=== PATIENT | female | born 1960 | race African-American/Black ===

== ENCOUNTER 2017-03-15 04:41 | Emergency (ER) | payer SELFPAY ==
--- NOTE | 2017-03-15 04:50 | PDOC ---
History of Present Illness - General History Source: Patient Exam Limitations: No Limitations - History of Present Illness Initial Comments: 03/15/17 05:01 The patient is a 57 year old female with a history of cancer who presents to the emergency department with headache, nausea, and vomiting for one day. The patient states on monday she went for radiation therapy at [facility]. Yesterday the patient began to feel nauseous and lethargic and was unable to keep any food down The patient notes that she began to develop a pounding headache, global in nature. She denies any other complaints at this time <Golden Natarajan - Last Filed: 03/15/17 05:01> <Mia Wasserman - Last Filed: 03/15/17 08:47> - General History Source: Patient <Crow Rivero - Last Filed: 03/15/17 20:01> - General Stated Complaint: HEADACHE Time Seen by Provider: 03/15/17 04:47 NIH Stroke Scale - Last Known Well Date/Time & Onset Date Last Known Well: 03/14/17 Time Last Known Well: 07:09 - Initial Evaluation Level of consciousness: Alert Ask patient the month and their age: Answers both correctly Ask patient to open & close eyes; make fist and let go: Obeys both correctly Best gaze (horizontal eye movement): Normal Visual field testing: No visual field loss Facial paresis (Show teeth/raise eyebrows/close eyes tight): Normal symmetrical movement Motor Function: Left Arm: Normal Motor Function: Right Arm: Normal (extends arm 90 (or 45) degrees for 10 seconds without drift Motor Function: Left Leg: Normal (extends leg 30 degrees for 5 seconds without drift) Motor Function: Right Leg: Normal (extends leg 30 degrees for 5 seconds without drift) Limb Ataxia: No ataxia Sensory(Use pinprick test arms,legs,trunk,face/side to side): Normal Best language (Describe picture, name items, read sentences): No Aphasia Dysarthria (read several words): Normal articulation Extinction and Inattention: No abnormality - Total Score NIH Stroke Scale Score: 0 <Crow Rivero - Last Filed: 03/15/17 20:01> tPA Exclusion Checklist 0-3hr - Time Elapsed Date last known well: 03/14/17 Time last known well: 07:10 Elaspsed time: 1 Day(s) and 12 Hour(s) and 50 Minutes - Thrombolytic Therapy Candidate Is the patient eligible for Thrombolytic Therapy?: No - Exclusion Criteria 0-3hr SBP greater than 185 or DBP greater than 110mmHg despite tx: No Hx of previous IC hemorrhage, IC neoplasm, AVM or aneurysm: Yes Active internal bleeding: No Blding diathesis(low plt ct, inc PTT,INR>1.7 or use of NOAC): No Symptoms suggest subarachnoid hemorrhage: No CT demonstrates multilobar infarct(>1/3 cerebral hemiphere): No Arterial puncture at noncompressible site in previous 7 days: No Blood glucose concentration less than 50mg/dL (2.7mmol/L): No - Relative Exclusion Criteria 0-3h Life expectancy <1yr/severe co-morbid illness/DEVELOPMENT SPEC on admit: No : No Patient/family refused: No Rapid improvement: No Stroke severity too mild: No Recent acute SD (w/in previous 3 months): No Seizure at onset with postictal residual neuro impairments: No Major surgery or serious trauma w/in previous 14 days: No Recent GI or hemorrhage (w/in previous 21 days): No - Ineligibility reason(s) Reasons No tPA given: Outside of window - delayed arrival (pt has intraparemchyal bleeding) <Crow Rivero - Last Filed: 03/15/17 20:01> Past History <Golden Natarajan - Last Filed: 03/15/17 05:01> <Mia Wasserman - Last Filed: 03/15/17 08:47> <Crow Rivero - Last Filed: 03/15/17 20:01> - Past Medical History Allergies/Adverse Reactions: Allergies Allergy/AdvReac Type Severity Reaction Status Date / Time No Known Allergies Allergy Verified 03/15/17 05:38 Review of Systems - Review of Systems Able to Perform ROS?: Yes Comments:: 03/15/17 05:01 CONSTITUTIONAL: Absent: fever, no chills, no fatigue EYES: Absent: visual changes ENT: Absent: ear pain, no sore throat CARDIOVASCULAR: Absent: chest pain, no palpitations RESPIRATORY: Absent: cough, no SOB GI: (+) Nausea, vomiting Absent: abdominal pain, no constipation, no diarrhea GENITOURINARY: Absent: dysuria, no frequency, no hematuria MUSCULOSKELETAL: Absent: back pain, no arthralgia, no myalgia SKIN: Absent: rash NEURO: (+) Headache <Golden Natarajan - Last Filed: 03/15/17 05:01> *Physical Exam - Vital Signs Last Vital Signs Temp Pulse Resp BP Pulse Ox 98.3 F 73 18 114/80 100 03/15/17 04:56 03/15/17 04:56 03/15/17 04:56 03/15/17 04:56 03/15/17 04:56 - Physical Exam Comments: 03/15/17 05:01 GENERAL: (+) Well-appearing, well-nourished. Mild distress. HEENT: Normocephalic, atraumatic. PERRL, EOM intact. CARDIOVASCULAR: Normal S1, S2. Regular rate and rhythm. PULMONARY: Clear to auscultation bilaterally. ABDOMEN: Soft, non-distended, non-tender. EXTREMITIES: Normal ROM in all four extremities. No gross deformities. SKIN: Warm, dry. No rash NEUROLOGICAL: No focal neurological deficits. <Golden Natarajan - Last Filed: 03/15/17 05:01> - Vital Signs Last Vital Signs Temp Pulse Resp BP Pulse Ox 98.3 F 86 18 110/69 98 03/15/17 07:00 03/15/17 07:00 03/15/17 07:00 03/15/17 07:00 03/15/17 07:00 <Mia Wasserman - Last Filed: 03/15/17 08:47> ED Treatment Course - LABORATORY CBC & Chemistry Diagram: 03/15/17 05:37 03/15/17 05:37 - ADDITIONAL ORDERS Additional order review: Laboratory Results 03/15/17 03/15/17 03/15/17 07:35 05:37 05:37 PT with INR 11.80 INR 1.04 Sodium 142 Potassium 3.7 Chloride 106 Carbon Dioxide 29 Anion Gap 7 L BUN 16 Creatinine 0.8 Creat Clearance w eGFR > 60 Random Glucose 116 H Calcium 8.3 L Magnesium 1.7 L Total Bilirubin 0.2 AST 8 L ALT 19 Alkaline Phosphatase 72 Total Protein 6.2 L Albumin 3.0 L Lipase 404 H Urine Color Ltyellow Urine Appearance Slcloudy Urine pH 7.0 Ur Specific [place] 1.014 Urine Protein Negative Urine Glucose (UA) Negative Urine Ketones Negative Urine Blood Negative Urine Nitrite Negative Urine Bilirubin Negative Urine Urobilinogen Negative Blood Type Antibody Screen 03/15/17 05:37 PT with INR INR Sodium Potassium Chloride Carbon Dioxide Anion Gap BUN Creatinine Creat Clearance w eGFR Random Glucose Calcium Magnesium Total Bilirubin AST ALT Alkaline Phosphatase Total Protein Albumin Lipase Urine Color Urine Appearance Urine pH Ur Specific [place] Urine Protein Urine Glucose (UA) Urine Ketones Urine Blood Urine Nitrite Urine Bilirubin Urine Urobilinogen Blood Type B POSITIVE Antibody Screen Negative 03/15/17 05:37 RBC 4.18 MCV 88.6 MCHC 32.8 RDW 16.0 H MPV 7.2 L Neutrophils % 75.4 Lymphocytes % 16.4 Monocytes % 7.1 Eosinophils % 0.6 Basophils % 0.5 - Medications Given in the ED: ED Medications Discontinued Medications Generic Name Dose Route Start Last Admin Trade Name Freq PRN Reason Stop Dose Admin Hydromorphone HCl 1 mg 03/15/17 05:36 03/15/17 05:49 Dilaudid Injection - IVPUSH 03/15/17 05:37 1 mg ONCE ONE Administration Morphine Sulfate 6 mg 03/15/17 04:51 03/15/17 05:13 Morphine Sulfate IVPUSH 03/15/17 04:52 6 mg ONCE ONE Administration Ondansetron HCl 4 mg 03/15/17 04:51 03/15/17 05:13 Zofran Injection IVPUSH 03/15/17 04:52 4 mg ONCE STA Administration Ondansetron HCl 4 mg 03/15/17 05:35 03/15/17 05:49 Zofran Injection IVPUSH 03/15/17 05:36 4 mg ONCE STA Administration <Mia Wasserman - Last Filed: 03/15/17 08:47> - LABORATORY CBC & Chemistry Diagram: 03/15/17 05:37 03/15/17 05:37 <Crow Rivero - Last Filed: 03/15/17 20:01> Medical Decision Making - Medical Decision Making 03/15/17 08:47 Stat team at bedside to transport to [facility]. <Mia Wasserman - Last Filed: 03/15/17 08:47> - Medical Decision Making 03/15/17 06:39 Pt feels better at this time. Awaiting Ct scan results of brain. Pending disposition. <Crow Rivero - Last Filed: 03/15/17 20:01> *DC/Admit/Observation/Transfer - Attestations Scribe Attestion: 03/15/17 05:01 Documentation prepared by Golden Natarajan, acting as medical information specialist for Crow Rivero DO. <Golden Natarajan - Last Filed: 03/15/17 05:01> - Discharge Dispostion Admit: No - Transfer to Acute Care Facility Receiving Facility: [facility]. Accepting Physician:: Warren Transfer comment: Accepted to [facility] by Dr. Kelley. <Mia Wasserman - Last Filed: 03/15/17 08:47> - Discharge Dispostion Admit: No - Transfer to Acute Care Facility Receiving Facility: [facility]. (transferred for Nerosurgical evaluation and care) <Crow Rivero - Last Filed: 03/15/17 20:01> Diagnosis at time of Disposition: Intraparenchymal hematoma of brain Qualifiers: Encounter type: initial encounter Laterality: left Loss of consciousness presence/duration: without LOC Qualified Code(s): S06.350A - Traumatic hemorrhage of left cerebrum without loss of consciousness, initial encounter - Discharge Dispostion Disposition: TRANSFER ACUTE CARE/OTHER HOSP Condition at time of disposition: Good
[2017-03-15] MEDS ORDERED: morphine SULFATE 4 MG/ML VIAL IVPUSH ONE (04:51)
[2017-03-15] MEDS ORDERED: ONDANSETRON 4 MG/2 ML VIAL IVPUSH STA ×3 (04:51→07:44)
[2017-03-15 04:58] VITALS: TEMP 98.3; BMI 29.9
[2017-03-15] MEDS ORDERED: SODIUM CHLORIDE 1,000 ML IV SCH (05:00)
[2017-03-15] MEDS ORDERED: morphine SULFATE 4 MG/ML VIAL ONE ×2 (05:00→08:07)
[2017-03-15] MEDS ORDERED: ONDANSETRON 4 MG/2 ML VIAL ONE ×2 (05:08→08:08)
[2017-03-15] MEDS ORDERED: HYDROmorphone HCL CARPU-JECT 1 MG/1 ML DISP.SYRIN IVPUSH ONE (05:36)
[2017-03-15] MEDS ORDERED: HYDROmorphone HCL CARPU-JECT 1 MG/1 ML DISP.SYRIN ONE (05:43)
[2017-03-15 05:44] LABS: BASOPHIL 0.5 % (0-2.0); EOSINOPHIL 0.6 % (0-4.5); MCH 29.1 pg (25.7-33.7); MCHC 32.8 g/dl (32.0-36.0); MEAN CELL VOLUME 88.6 fl (80-96); MEAN PLT VOLUME 7.2 fl (7.5-11.1); NEUTROPHILS 75.4 % (42.8-82.8); PLATELET COUNT 271 K/MM3 (134-434); WHITE BLOOD COUNT 11.9 K/mm3 (4.0-10.0)
[2017-03-15 05:57] LABS: INR 1.04 (0.82-1.09); PROTHROMBIN TIME (PATIENT) 11.8 SEC (9.98-11.88)
[2017-03-15 06:08] LABS: ANION GAP 7 (8-16); BILIRUBIN,TOTAL 0.2 mg/dL (0.2-1.0); CALCIUM 8.3 mg/dL (8.5-10.1); CO2 29 mmol/L (21-32); CREATININE 0.8 mg/dL (0.55-1.02); GLUCOSE,RANDOM 116 mg/dL (74-106); MAGNESIUM 1.7 mg/dL (1.8-2.4); SGOT/AST 8 U/L (15-37); SGPT/ALT 19 U/L (12-78); TOT PROT 6.2 g/dl (6.4-8.2)
[2017-03-15 06:09] LABS: ALK PHOS 72 U/L (45-117)
[2017-03-15 07:43] LABS: URINE APPEARANCE SLCLOUDY; URINE BILIRUBIN NEGATIVE (NEGATIVE); URINE BLOOD NEGATIVE (NEGATIVE); URINE COLOR LTYELLOW; URINE GLUCOSE (UA) NEGATIVE (NEGATIVE); URINE KETONE NEGATIVE (NEGATIVE); URINE NITRITE NEGATIVE (NEGATIVE); URINE PROTEIN NEGATIVE (NEGATIVE); URINE UROBILINOGEN NEGATIVE mg/dL (0.2-1.0)
[2017-03-15] MEDS ORDERED: morphine CARPU-JECT 2 MG/1 ML DISP.SYRIN IVPUSH ONE (07:44)
[2017-03-15 08:43] VITALS: BP 102/73; PULSE 85
[2017-03-15 11:45] LABS: URINE LEUK ESTERASE Negative (NEGATIVE)
--- NOTE | 2017-03-15 12:10 | EKG ---
Test Reason : Blood Pressure : / mmHG Vent. Rate : 087 BPM Atrial Rate : 087 BPM P-R Int : 172 ms QRS Dur : 074 ms QT Int : 398 ms P-R-T Axes : 062 051 058 degrees QTc Int : 478 ms NORMAL SINUS RHYTHM NORMAL ECG NO PREVIOUS ECGS AVAILABLE Confirmed by ARNOLD CHRISTIANSON MD ([id number]) on 03/15/2017 12:10:21 PM Referred By: Confirmed By:ARNOLD CHRISTIANSON MD
== END 2017-03-15 08:50 | disposition short-term general hospital (02) ==
LOC: JER 04:41
PROC: 3E033GC Introduction of Other Therapeutic Substance into Peripheral Vein, Percutaneous Approach (ICD-10-PCS; principal; 2017-03-15)
PROC: 3E033NZ Introduction of Analgesics, Hypnotics, Sedatives into Peripheral Vein, Percutaneous Approach (ICD-10-PCS; 2017-03-15)
PROC: 3E033GC Introduction of Other Therapeutic Substance into Peripheral Vein, Percutaneous Approach (ICD-10-PCS; 2017-03-15)
DX: I61.8 Other nontraumatic intracerebral hemorrhage (principal); D09.9 Carcinoma in situ, unspecified
CPT/HCPCS: 36415; 70450-TC; 80053; 81003; 83690; 83735; 85025; 85610; 86850; 86900; 86901; 93005; 93010; 99282-25

== ENCOUNTER 2018-10-26 17:21 | Inpatient (IN) | payer OTHER, BC ==
[2018-10-26] MEDS ORDERED: ACETAMINOPHEN 1000 MG/100 ML VIAL (NON FORMULARY) IVPB ONE (18:23)
[2018-10-26] MEDS ORDERED: ONDANSETRON 4 MG/2 ML VIAL IVPUSH ONE (18:23)
[2018-10-26] MEDS ORDERED: SODIUM CHLORIDE 1,000 ML IV STA (18:23)
[2018-10-26] MEDS ORDERED: ACETAMINOPHEN INJECTION 100 ML IVPB ONE ×2 (18:26→18:33)
[2018-10-26] MEDS ORDERED: ONDANSETRON 4 MG/2 ML VIAL ONE (18:27)
[2018-10-26] MEDS ORDERED: morphine CARPU-JECT 4 MG/1 ML DISP.SYRIN IVPUSH ONE ×3 (18:44→22:56)
[2018-10-26] MEDS ORDERED: morphine SULFATE 4 MG/ML VIAL ONE ×3 (18:56→23:10)
[2018-10-26 19:06] LABS: BASO % 0.2 % (0-2.0); EOS % 0.8 % (0-4.5); HEMATOCRIT 43.3 % (32.4-45.2); HEMOGLOBIN 14.3 GM/dL (10.7-15.3); LYMPH % 9.9 % (8-40); MCH 28.4 pg (25.7-33.7); MEAN PLT VOLUME 7.7 fl (7.5-11.1); MONO % 3.9 % (3.8-10.2); NEUT % 85.2 % (42.8-82.8); PLATELET COUNT 304 K/MM3 (134-434); RBC 5.03 M/mm3 (3.60-5.2); RDW 14.6 % (11.6-15.6); WHITE BLOOD COUNT 12.3 K/mm3 (4.0-10.0)
[2018-10-26 20:02] LABS: PH,URINE 5.5 (5.0-8.0); URINE APPEARANCE CLEAR; URINE BILIRUBIN NEGATIVE (NEGATIVE); URINE COLOR YELLOW; URINE GLUCOSE (UA) NEGATIVE (NEGATIVE); URINE KETONE 2+ (NEGATIVE); URINE LEUK ESTERASE NEGATIVE (NEGATIVE); URINE NITRITE NEGATIVE (NEGATIVE); URINE PROTEIN TRACE (NEGATIVE)
[2018-10-26 20:19] LABS: ALBUMIN 3.8 g/dl (3.4-5.0); BILIRUBIN,TOTAL 0.3 mg/dL (0.2-1); BLOOD UREA NITROGEN 13.7 mg/dL (7-18); CALCIUM 9.3 mg/dL (8.5-10.1); CREATININE 0.8 mg/dL (0.55-1.3); POTASSIUM 3.9 mmol/L (3.5-5.1); TOT PROT 7.6 g/dl (6.4-8.2)
--- NOTE | 2018-10-26 21:27 | PDOC ---
Documentation entered by Rosy Fierro SCRIBE, acting as scribe for Amol Gonzalez MD. Amol Gonzalez MD: This documentation has been prepared by the Vadim enriquez Sammi, SCRIBE, under my direction and personally reviewed by me in its entirety. I confirm that the documentation accurately reflects all work, treatment, procedures, and medical decision making performed by me. History of Present Illness - General Chief Complaint: Pain Stated Complaint: STOMACH PAIN Time Seen by Provider: 10/26/18 19:14 History Source: Patient Exam Limitations: No Limitations - History of Present Illness Initial Comments: 10/26/18 19:52 The patient is a 58 year old female, with a significant PMH of lung cancer, brain cancer, asthma, COPD, who presents to the emergency department for evaluation of 1 day of diffuse abdominal pain. The patient reports at around 2pm this afternoon her stomach began to hurt with associated 3 large bowel movements and 1 episode of vomit. The patient states she ate a new smoothie today and a new granola bar before the symptoms began. The patient denies chest pain, shortness of breath, headache and dizziness. Denies dysuria, frequency, urgency and hematuria. Allergies: NDA Surgical history: appendectomy, brain surgery for cancer Past History - Past Medical History Allergies/Adverse Reactions: Allergies Allergy/AdvReac Type Severity Reaction Status Date / Time No Known Allergies Allergy Verified 03/15/17 05:38 COPD: No - Immunization History Immunization Up to Date: Yes - Suicide/Smoking/Psychosocial Hx Smoking History: Never smoked Have you smoked in the past 12 months: No Hx Alcohol Use: No Drug/Substance Use Hx: No Review of Systems - Review of Systems Comments:: 10/26/18 19:52 GENERAL/CONSTITUTIONAL: No fever or chills. No weakness. HEAD, EYES, EARS, NOSE AND THROAT: No change in vision. No ear pain or discharge. No sore throat. CARDIOVASCULAR: No chest pain or shortness of breath. RESPIRATORY: No cough, wheezing, or hemoptysis. GASTROINTESTINAL: (+)diffuse abdominal pain. (+)nausea (+)vomiting GENITOURINARY: No dysuria, frequency, or change in urination. MUSCULOSKELETAL: No joint or muscle swelling or pain. No neck or back pain. SKIN: No rash NEUROLOGIC: No headache, vertigo, loss of consciousness, or change in strength/ sensation. *Physical Exam - Vital Signs Last Vital Signs Temp Pulse Resp BP Pulse Ox 98.1 F 90 20 117/84 10/26/18 17:48 10/26/18 17:48 10/26/18 17:48 10/26/18 17:48 - Physical Exam Comments: 10/26/18 19:52 GENERAL: Uncomfortable appearing. HEAD: No signs of trauma ENT: Hearing grossly normal. NECK: Normal ROM. Supple. LUNGS: Breath sounds equal, clear to auscultation bilaterally. No wheezes, and no crackles HEART: Regular rate and rhythm, normal S1 and S2, no murmurs, rubs or gallops ABDOMEN: (+)Diffuse abdominal tenderness to palpation. Soft, No guarding, no rebound. EXTREMITIES: Normal range of motion, no edema. No clubbing or cyanosis. No cords, erythema, or tenderness NEUROLOGICAL: Cranial nerves II through XII grossly intact. Normal speech. SKIN: Warm, Dry. No rashes or lesions noted. ED Treatment Course - LABORATORY CBC & Chemistry Diagram: 10/26/18 18:40 10/26/18 18:40 - ADDITIONAL ORDERS Additional order review: 10/26/18 18:40 RBC 5.03 MCV 86.0 MCHC 33.0 RDW 14.6 MPV 7.7 Neutrophils % 85.2 H Lymphocytes % 9.9 D Monocytes % 3.9 Eosinophils % 0.8 Basophils % 0.2 - RADIOLOGY Radiology Studies Ordered: Category Date Time Status ABDOMEN & PELVIS CT WITH CONTR [CT] Stat CT Scan 10/26/18 19:31 Ordered - Medications Given in the ED: ED Medications Discontinued Medications Generic Name Dose Route Start Last Admin Trade Name Raza PRN Reason Stop Dose Admin Acetaminophen 1,000 mg 10/26/18 18:23 10/26/18 18:47 Ofirmev Injection - IVPB 10/26/18 18:24 1,000 mg ONCE ONE Administration Morphine Sulfate 4 mg 10/26/18 18:44 10/26/18 19:07 Morphine Injection - IVPUSH 10/26/18 18:45 4 mg ONCE ONE Administration Ondansetron HCl 4 mg 10/26/18 18:23 10/26/18 18:48 Zofran Injection IVPUSH 10/26/18 18:24 4 mg ONCE ONE Administration Medical Decision Making - Medical Decision Making 10/26/18 19:41 A portion of this note was documented by scribe services under my direction. I have reviewed the details of the note, within reason, and agree with the documentation with the following case summary and management plan written by me. Patient treated in the ED. Nursing notes are reviewed and incorporated into the medical decision-making. Vital signs reviewed. Peripheral IV access obtained by the nurse, laboratory studies are drawn and sent, reviewed and interpreted by myself. Vital Signs Temp Pulse Resp BP Pulse Ox 98.1 F 90 20 117/84 10/26/18 17:48 10/26/18 17:48 10/26/18 17:48 10/26/18 17:48 58-year-old with past medical history of brain and lung cancer currently in remission, with lung nodules with next scheduled CT scan the chest in December 2018, asthma and COPD presents with diffuse abdominal pain. The patient reported that she ate nothing unusual yesterday. Woke up this morning in her usual state health. She ate a new smoothie with new ingredients including fruit this morning and subsequently developed diffuse abdominal pain. She reported that she was straining to move her bowels and had vomited once. Patient is a history of an appendectomy. Denies any fevers or chills. Though food poisoning and gastroenteritis is within the differential. Patient does have prior cancer history and surgical history. We'll need to rule out bowel obstruction, diverticulitis, other acute abdominal pathology. Labs, CAT scan abdomen pelvis, pain control, IV fluids and reassess. 10/26/18 23:41 CBC, BMP 10/26/18 18:40 10/26/18 18:40 CMP Sodium 140 mmol/L (136-145) 10/26/18 18:40 Potassium 3.9 mmol/L (3.5-5.1) 10/26/18 18:40 Chloride 106 mmol/L (98-107) 10/26/18 18:40 Carbon Dioxide 27 mmol/L (21-32) 10/26/18 18:40 Anion Gap 8 MMOL/L (8-16) 10/26/18 18:40 BUN 13.7 mg/dL (7-18) 10/26/18 18:40 Creatinine 0.8 mg/dL (0.55-1.3) 10/26/18 18:40 Est GFR (CKD-EPI)AfAm 92.87 10/26/18 18:40 Est GFR (CKD-EPI)NonAf 80.13 10/26/18 18:40 Random Glucose 99 mg/dL (74-106) 10/26/18 18:40 Lactic Acid 0.7 mmol/L (0.4-2.0) 10/26/18 18:40 Calcium 9.3 mg/dL (8.5-10.1) 10/26/18 18:40 Total Bilirubin 0.3 mg/dL (0.2-1) 10/26/18 18:40 AST 13 U/L (15-37) L 10/26/18 18:40 ALT 18 U/L (13-61) 10/26/18 18:40 Alkaline Phosphatase 98 U/L (45-117) 10/26/18 18:40 Total Protein 7.6 g/dl (6.4-8.2) 10/26/18 18:40 Albumin 3.8 g/dl (3.4-5.0) 10/26/18 18:40 Total Amylase 65 U/L (25-115) 10/26/18 18:40 Lipase 282 U/L (73-393) 10/26/18 18:40 CAT scan demonstrates a questionable enlargement of the right ovary as well as a nonspecific dilatation of the common bile duct. Given these nonspecific finds , we'll order an ultrasound of the ovary as well as MRCP of the abdomen. We'll admit the patient to the hospital for further evaluation. GI consultation ordered. *DC/Admit/Observation/Transfer Diagnosis at time of Disposition: Abdominal pain Qualifiers: Abdominal location: generalized Qualified Code(s): R10.84 - Generalized abdominal pain - Discharge Dispostion Condition at time of disposition: Stable Decision to Admit order: Yes - Referrals - Patient Instructions - Post Discharge Activity
[2018-10-27] MEDS ORDERED: LACTATED RINGERS SOLUTION 1,000 ML IV SCH (00:15)
[2018-10-27] MEDS ORDERED: ONDANSETRON 4 MG/2 ML VIAL IVPUSH ONE (02:30)
[2018-10-27] MEDS ORDERED: ONDANSETRON 4 MG/2 ML VIAL ONE (02:33)
[2018-10-27] MEDS ORDERED: ALBUTEROL SO4 0.083% IH SOL 2.5 MG/3 ML VIAL.NEB. NEB PRN (03:06)
[2018-10-27 04:25] VITALS: BMI 35.8
--- NOTE | 2018-10-27 07:08 | PN ---
Teaching Attending Note Name of Resident: aMría King ATTENDING PHYSICIAN STATEMENT I saw and evaluated the patient. Chart, data, imaging reviewed. I reviewed the resident's note and discussed the case with the resident. I agree with the resident's findings and plan as documented. SUBJECTIVE: 58 year old female, with a significant PMH of lung cancer, brain cancer, asthma , COPD, c/o acute onset of nausea and nonbloody vomiting following ingestion of fruit smoothie one day ago. OBJECTIVE: Last Vital Signs Temp Pulse Resp BP Pulse Ox 98.1 F 76 22 H 109/74 97 10/27/18 06:00 10/27/18 06:00 10/27/18 06:00 10/27/18 06:00 10/27/18 05:00 abdomen -soft, BS+, nt obese ext- no pedal edema appreciated Abnormal Lab Results 10/26/18 10/26/18 10/26/18 18:40 18:40 19:00 WBC 12.3 H Absolute Neuts (auto) 10.4 H Neutrophils % 85.2 H AST 13 L Urine Ketones 2+ H Imaging studies reviewed CT scan demonstrates a questionable enlargement of the right ovary as well as a nonspecific dilatation of the common bile duct. ASSESSMENT AND PLAN: #58yo woman with acute nausea and vomiting- possibly gastroenteritis? Incidental finding of right ovary enlargement on CT abd/pelvis with some trace ascites concerning for possible malignancy. Met from prior lung ca? CBD dialtation also found - unlikely related to current symptoms. -med/surg -u/s for right ovary enlargement -obgyn eval -hepatic function panel -GI consult CBD dilatation -iv fluid hydration -zofran IV prn if n/v -echo -clear liquid diet and advance as tolerated -heparin sc for dvt ppx
[2018-10-27] MEDS ORDERED: MORPHINE SULFATE 2 MG/ML VIAL IVPUSH PRN ×2 (08:37→12:37)
--- NOTE | 2018-10-27 08:38 | HP ---
CHIEF COMPLAINT:diffuse abdominal pain PCP: HISTORY OF PRESENT ILLNESS: Patient is a 58 year old female with past medical history of lung ca s/p lobectomy, brain cancer s/p surgery, asthma, COPD, presented to the ED due to sudden onset severe diffuse abdominal pain that started yesterday afternoon. Patient reported she was feeling okay during the day, later on had some smoothie , which she normally has, and afterwards experienced sudden diffuse abdominal pain. This was accompanied by nausea and NBNB vomiting. Patient denies any fever , chills, headache, dizziness, chest pain, SOB, diarrhea, constipation, urinary symptoms. ER course was notable for: (1) (2) (3) Recent Travel:denies PAST MEDICAL HISTORY: Lung ca s/p lobectomy brain cancer s/p surgery asthma COPD PAST SURGICAL HISTORY: lobectomy brain surgery appendectomy right rotator cuff repair Social History: Smoking:denies Alcohol:denies Drugs: denies Family History: Allergies No Known Allergies Allergy (Verified 03/15/17 05:38) HOME MEDICATIONS: REVIEW OF SYSTEMS CONSTITUTIONAL: Absent: fever, chills, diaphoresis, generalized weakness, malaise, loss of appetite, weight change HEENT: Absent: rhinorrhea, nasal congestion, throat pain, throat swelling, difficulty swallowing, mouth swelling, ear pain, eye pain, visual changes CARDIOVASCULAR: Absent: chest pain, syncope, palpitations, irregular heart rate, lightheadedness , peripheral edema RESPIRATORY: Absent: cough, shortness of breath, dyspnea with exertion, orthopnea, wheezing, stridor, hemoptysis GASTROINTESTINAL: Absent: abdominal pain, abdominal distension, nausea, vomiting, diarrhea, constipation, melena, hematochezia GENITOURINARY: Absent: dysuria, frequency, urgency, hesitancy, hematuria, flank pain, genital pain MUSCULOSKELETAL: Absent: myalgia, arthralgia, joint swelling, back pain, neck pain SKIN: Absent: rash, itching, pallor HEMATOLOGIC/IMMUNOLOGIC: Absent: easy bleeding, easy bruising, lymphadenopathy, frequent infections ENDOCRINE: Absent: unexplained weight gain, unexplained weight loss, heat intolerance, cold intolerance NEUROLOGIC: Absent: headache, focal weakness or paresthesias, dizziness, unsteady gait, seizure, mental status changes, bladder or bowel incontinence PSYCHIATRIC: Absent: anxiety, depression, suicidal or homicidal ideation, hallucinations. PHYSICAL EXAMINATION Vital Signs - 24 hr 10/26/18 10/27/18 10/27/18 17:48 01:51 03:59 Temperature 98.1 F 97.2 F L 97.7 F Pulse Rate 90 69 Pulse Rate [ 76 Left Radial] Respiratory 20 20 Rate Blood Pressure 117/84 107/75 Blood Pressure 97/64 [Right Arm] O2 Sat by Pulse 93 L Oximetry (%) 10/27/18 10/27/18 05:00 06:00 Temperature 98.1 F Pulse Rate 76 Pulse Rate [ Left Radial] Respiratory 22 H Rate Blood Pressure 109/74 Blood Pressure [Right Arm] O2 Sat by Pulse 97 Oximetry (%) GENERAL: Awake, alert, and fully oriented, in no acute distress. HEAD: Normal with no signs of trauma. EYES: Pupils equal, round and reactive to light, extraocular movements intact, sclera anicteric, conjunctiva clear. No lid lag. EARS, NOSE, THROAT: Ears normal, nares patent, oropharynx clear without exudates. Moist mucous membranes. NECK: Normal range of motion, supple without lymphadenopathy, JVD, or masses. LUNGS: Breath sounds equal, clear to auscultation bilaterally. No wheezes, and no crackles. No accessory muscle use. HEART: Regular rate and rhythm, normal S1 and S2 without murmur, rub or gallop. ABDOMEN: Soft, nontender, not distended, normoactive bowel sounds, no guarding, no rebound, no masses. No hepatomegaly or splenomegaly. MUSCULOSKELETAL: Normal range of motion at all joints. No bony deformities or tenderness. No CVA tenderness. UPPER EXTREMITIES: 2+ pulses, warm, well-perfused. No cyanosis. No clubbing. No peripheral edema. LOWER EXTREMITIES: 2+ pulses, warm, well-perfused. No calf tenderness. No peripheral edema. NEUROLOGICAL: Cranial nerves II-XII intact. Normal speech. Normal gait. PSYCHIATRIC: Cooperative. Good eye contact. Appropriate mood and affect. SKIN: Warm, dry, normal turgor, no rashes or lesions noted, normal capillary refill. Laboratory Results - last 24 hr 10/26/18 10/26/18 10/26/18 18:40 18:40 18:40 WBC 12.3 H RBC 5.03 Hgb 14.3 Hct 43.3 D MCV 86.0 MCH 28.4 MCHC 33.0 RDW 14.6 Plt Count 304 MPV 7.7 Absolute Neuts (auto) 10.4 H Neutrophils % 85.2 H Lymphocytes % 9.9 D Monocytes % 3.9 Eosinophils % 0.8 Basophils % 0.2 Nucleated RBC % 0 Sodium 140 Potassium 3.9 Chloride 106 Carbon Dioxide 27 Anion Gap 8 BUN 13.7 Creatinine 0.8 Est GFR (CKD-EPI)AfAm 92.87 Est GFR (CKD-EPI)NonAf 80.13 Random Glucose 99 Lactic Acid 0.7 Calcium 9.3 Total Bilirubin 0.3 AST 13 L ALT 18 Alkaline Phosphatase 98 Total Protein 7.6 Albumin 3.8 Total Amylase 65 Lipase 282 Urine Color Urine Appearance Urine pH Ur Specific [place] Urine Protein Urine Glucose (UA) Urine Ketones Urine Blood Urine Nitrite Urine Bilirubin Urine Urobilinogen Ur Leukocyte Esterase 10/26/18 19:00 WBC RBC Hgb Hct MCV MCH MCHC RDW Plt Count MPV Absolute Neuts (auto) Neutrophils % Lymphocytes % Monocytes % Eosinophils % Basophils % Nucleated RBC % Sodium Potassium Chloride Carbon Dioxide Anion Gap BUN Creatinine Est GFR (CKD-EPI)AfAm Est GFR (CKD-EPI)NonAf Random Glucose Lactic Acid Calcium Total Bilirubin AST ALT Alkaline Phosphatase Total Protein Albumin Total Amylase Lipase Urine Color Yellow Urine Appearance Clear Urine pH 5.5 D Ur Specific [place] 1.022 Urine Protein Trace Urine Glucose (UA) Negative Urine Ketones 2+ H Urine Blood Negative Urine Nitrite Negative Urine Bilirubin Negative Urine Urobilinogen 1.0 Ur Leukocyte Esterase Negative ASSESSMENT/PLAN: Patient is a 58 year old female with past medical history of lung ca s/p lobectomy, brain cancer s/p surgery, asthma, COPD, presented to the ED due to sudden onset severe diffuse abdominal pain that started yesterday afternoon. #Abdominal pain, may be 2/2 acute gatroenteritis vs possible metastates -CTAP: Main pancreatic duct at level of head and neck reveal nonspecific dilatation of 0.7cm. Probable diffuse hepatic steatosis. mild Sigmoid diverticulosis with no evidence of acute diverticulitis. Small amount of pelvic ascites and mild subtle enlargement of the right ovary. -IV fluids -Zofran PRN for nausea or vomiting -IV morphine PRN for pain -Clear liquid diet for now, advance as tolerated -GI consulted. #Right ovary enlargement on CTAP -small cut pelvic ascites and mild subtle enlargement of right ovary may be concerning for malignancy -TVS done to further assess enlarged right ovary -DISHWASHER (Dr. Arreola) consulted. #Asthma, COPD -Albuterol neb prn for wheezing or SOB #FEn -IV LR @125cc/hr -electrolytes wnl, routine bmp monitoring -NPO #Prophylaxis -Lovenox 40mg sq daily #disposition -med surg -full code Visit type - Emergency Visit Emergency Visit: Yes ED Registration Date: 10/26/18 Care time: The patient presented to the Emergency Department on the above date and was hospitalized for further evaluation of their emergent condition. - New Patient This patient is new to me today: Yes Date on this admission: 10/29/18 - Critical Care Critical Care patient: No
[2018-10-27] MEDS ORDERED: ENOXAPARIN NA (PORCINE) 40 MG/0.4 ML DISP.SYRIN SQ SCH (10:00)
--- NOTE | 2018-10-27 10:02 | CONSULT ---
Consult Referred by:: Hospitalist- IM Reason for Consultation:: Slight Ovarian Enlargement on CT - History of Present Illness Chief Complaint: Abdominal pain History of Present Illness: 58yo here with abdominal pain after having a smoothie. No pelvic pain, no discharge/bleeding. Denies any recent OBGYN care, uncertain of last pap. - History Source History Provided By: Patient - Past Medical History ...: No - Alcohol/Substance Use Hx Alcohol Use: No History of Substance Use: reports: None - Smoking History Smoking history: Never smoked Have you smoked in the past 12 months: No - Social History ADL: Independent Home Medications - Allergies Allergies/Adverse Reactions: Allergies Allergy/AdvReac Type Severity Reaction Status Date / Time No Known Allergies Allergy Verified 03/15/17 05:38 Physical Exam Vital Signs: Vital Signs Temperature 98.1 F 10/27/18 09:10 Pulse Rate 69 10/27/18 09:10 Respiratory Rate 18 10/27/18 09:10 Blood Pressure 92/60 10/27/18 09:10 O2 Sat by Pulse Oximetry (%) 97 10/27/18 05:00 Constitutional: Yes: Well Nourished (Exam deferred given no abnormal clinical findings), No Distress, Calm Labs: CBC, BMP 10/26/18 18:40 10/26/18 18:40 Assessment/Plan 58yo here with abdominal pain, incidental finding on CT scan of "slightly enlarged ovary" -No details on CT imaging, TVUS sono imagines reviewed. Normal size uterus, ES 3mm, ovary appears a normal size with a simple appearing cyst -Nothing suspicious on TVUS findings -Has not had established REHABILITATION THERAPY AIDE care for some years, likely due for pap smear. This can be accomplished as an outpatient. Perla Arreola MD
[2018-10-27 11:37] LABS: BASO % 0.2 % (0-2.0); EOS % 2.5 % (0-4.5); HEMOGLOBIN 13.5 GM/dL (10.7-15.3); LYMPH % 28.7 % (8-40); MCH 28.6 pg (25.7-33.7); MCHC 32.8 g/dl (32.0-36.0); MEAN CELL VOLUME 87.2 fl (80-96); MEAN PLT VOLUME 7.8 fl (7.5-11.1); MONO % 6.1 % (3.8-10.2); NEUT % 62.5 % (42.8-82.8); RDW 14.4 % (11.6-15.6); WHITE BLOOD COUNT 7.9 K/mm3 (4.0-10.0)
[2018-10-27 12:14] LABS: ALBUMIN 3.5 g/dl (3.4-5.0); BILIRUBIN,TOTAL 0.4 mg/dL (0.2-1); BLOOD UREA NITROGEN 8.3 mg/dL (7-18); CALCIUM 8.7 mg/dL (8.5-10.1); CREATININE 0.9 mg/dL (0.55-1.3); MAGNESIUM 2.3 mg/dL (1.8-2.4); PHOSPHOROUS 3.1 mg/dL (2.5-4.9); POTASSIUM 4.3 mmol/L (3.5-5.1); TOT PROT 7.1 g/dl (6.4-8.2)
[2018-10-27 12:23] LABS: PLATELET COUNT 301 K/MM3 (134-434)
[2018-10-27] MEDS ORDERED: DEXTROSE 5%-LACTATED RINGERS 1,000 ML IV SCH ×2 (12:45→14:01)
--- NOTE | 2018-10-27 12:45 | PN ---
Physical Exam: SUBJECTIVE: Patient seen and examined, abdominal pain better, no nausea, vomiting or concerns otherwise. reported generalized abdominal pain yesterday after having smoothie. But reports chronic RUQ discomfort since her lung surgery. No relation to diet or fatty foods. OBJECTIVE: Vital Signs Period Temp Pulse Resp BP Sys/Artis Pulse Ox Last 24 Hr 97.2 F-98.1 F 69-90 18-22 92-117/60-84 93-97 Intake & Output 10/24/18 10/25/18 10/26/18 10/27/18 23:59 23:59 23:59 23:59 Intake Total 100 Balance 100 Weight 220 lb 215 lb 2 oz GENERAL: sitting in bed in no acute distress Neck: soft, supple, no JVD CVS:S1s2 regular Chest: CTAB, no rales or wheezing Abdomen: soft, right per-umbilical tenderness, no RUQ tenderness, neg Bravo's sign, no voluntary or involuntary gaurding or rigidity, pos bowel sounds Extremities: no edema Psych: pleasant, co-operative Laboratory Results - last 24 hr 10/26/18 10/26/18 10/26/18 18:40 18:40 18:40 WBC 12.3 H RBC 5.03 Hgb 14.3 Hct 43.3 D MCV 86.0 MCH 28.4 MCHC 33.0 RDW 14.6 Plt Count 304 MPV 7.7 Absolute Neuts (auto) 10.4 H Neutrophils % 85.2 H Lymphocytes % 9.9 D Monocytes % 3.9 Eosinophils % 0.8 Basophils % 0.2 Nucleated RBC % 0 Sodium 140 Potassium 3.9 Chloride 106 Carbon Dioxide 27 Anion Gap 8 BUN 13.7 Creatinine 0.8 Est GFR (CKD-EPI)AfAm 92.87 Est GFR (CKD-EPI)NonAf 80.13 Random Glucose 99 Lactic Acid 0.7 Calcium 9.3 Phosphorus Magnesium Total Bilirubin 0.3 AST 13 L ALT 18 Alkaline Phosphatase 98 Total Protein 7.6 Albumin 3.8 Total Amylase 65 Lipase 282 Urine Color Urine Appearance Urine pH Ur Specific [place] Urine Protein Urine Glucose (UA) Urine Ketones Urine Blood Urine Nitrite Urine Bilirubin Urine Urobilinogen Ur Leukocyte Esterase 10/26/18 10/27/18 10/27/18 19:00 10:49 10:49 WBC 7.9 RBC 4.70 Hgb 13.5 Hct 41.0 MCV 87.2 MCH 28.6 MCHC 32.8 RDW 14.4 Plt Count 301 MPV 7.8 Absolute Neuts (auto) 4.9 Neutrophils % 62.5 D Lymphocytes % 28.7 D Monocytes % 6.1 Eosinophils % 2.5 D Basophils % 0.2 Nucleated RBC % 0 Sodium 141 Potassium 4.3 Chloride 107 Carbon Dioxide 29 Anion Gap 6 L BUN 8.3 Creatinine 0.9 Est GFR (CKD-EPI)AfAm 80.55 Est GFR (CKD-EPI)NonAf 69.50 Random Glucose 91 Lactic Acid Calcium 8.7 Phosphorus 3.1 Magnesium 2.3 Total Bilirubin 0.4 AST 10 L ALT 17 Alkaline Phosphatase 91 Total Protein 7.1 Albumin 3.5 Total Amylase Lipase Urine Color Yellow Urine Appearance Clear Urine pH 5.5 D Ur Specific [place] 1.022 Urine Protein Trace Urine Glucose (UA) Negative Urine Ketones 2+ H Urine Blood Negative Urine Nitrite Negative Urine Bilirubin Negative Urine Urobilinogen 1.0 Ur Leukocyte Esterase Negative Active Medications Generic Name Dose Route Start Last Admin Trade Name Freq PRN Reason Stop Dose Admin Acetaminophen 1,000 mg 10/27/18 03:05 Ofirmev Injection - IVPB Q6H PRN PAIN LEVEL 6-10 Albuterol Sulfate 1 amp 10/27/18 03:06 10/27/18 06:25 Ventolin 0.083% Nebulizer Soln - NEB 1 amp Q6H PRN Administration SHORT OF BREATH/WHEEZING Dextrose/Lactated Ringer's 1,000 mls @ 125 mls/hr 10/27/18 12:45 D5-Lr - IV ASDIR KWESI Morphine Sulfate 1 mg 10/27/18 12:37 Morphine Sulfate IVPUSH Q6H PRN PAIN LEVEL 7 - 10 Non-Formulary Medication 1 each 10/27/18 12:45 Fluticasone/Salmeterol [Advair 250-50 Diskus] IH BID [facility] Non-Formulary Medication 1 inh 10/27/18 12:45 Tiotropium [place] [Spiriva] PO DAILY [facility] CT A/P results reviewed ASSESSMENT/PLAN: 58 yof with PMhx of Lung ca s/p right lobectomy, Brain Ca s/p radiation, COPD, admitted with generalized abdominal pain after having a smoothie. -Abdominal pain, ?gastroenteritis vs hepatic, less likely Air Motor Repairer etiology -CBD dilatation -Ovarian cyst -Lung ca s/p right lobectomy -?Brain Ca s/p irradiation -COPD Plan: Check MRCP, GI input. Trend labs. NPO, IVF, pain control, supportive tx. Air Motor Repairer input noted, outpatient follow up. H/o Brain Ca with ?Haemorrhage. Will hold off on lovenox for now till further info retrived. SCDs Dispo pending above imaging, GI input and clinical improvement. Plan discussed with patient and nursing in detail, all questions answered. Visit type - Emergency Visit Emergency Visit: Yes ED Registration Date: 10/26/18 Care time: The patient presented to the Emergency Department on the above date and was hospitalized for further evaluation of their emergent condition. - New Patient This patient is new to me today: Yes Date on this admission: 10/27/18 - Critical Care Critical Care patient: No - Discharge Referral Referred to [facility] Med P.C.: No
--- NOTE | 2018-10-27 13:55 | CON.GI ---
Consult Consult Specialty:: Gastroenterology ( covering the [facility] GI service) Referred by:: Amol Gonzalez MD Reason for Consultation:: dilated CBD - History of Present Illness Chief Complaint: diffuse upper abdominal pain History of Present Illness: 58F is admitted with diffuse upper abdominal pain. She denies N/V and diarrhea. No back pain. No recent weight loss. Denies any previous h/o GI, liver or pancreatic diseases. She had a normal colonoscopy over 10 years ago. She had a 2nd surgery for appendicitis which revealed no residual appendix and during which nothing else was removed. Her mother of a carcinoid of the pancreas. Charity is s/p excision and RT of brain metastases at [facility] in 2017 with subsequent bleed. She had a right partial lobectomy for lung cancer in 2016. 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 bleed), Other (Brain metastses excised and RT in 2017) Pulmonary: Yes: Cancer (Right lung cancer excised by thoracoscopy in 2015) Gastrointestinal: Yes: Diverticulosis Hepatobiliary: Yes: Other (fatty liver) ...: No Heme/Onc: Yes: Cancer (right lung cancer excised 2016, brain mets excised and RT in 2017) Musculoskeletal: Yes: Other (left rotator cuff tear repaired) - Past Surgical History Past Surgical History: Yes: Appendectomy (with subsequent 2nd surgery for suspected appendicitis), Colonoscopy, Craniotomy (brain metatases excision 2016) Additional Surgical History: Right thoracoscopic excision of lung cancer 2016. Brain metastases excision 2017. Left rotator cuff surgery following fall in 2016 which led to lung cancer discovery - Alcohol/Substance Use Hx Alcohol Use: No History of Substance Use: reports: None - Smoking History Smoking history: Former smoker Have you smoked in the past 12 months: No If you are a former smoker, when did you quit?: 2016 - Social History Usual Living Arrangement: Alone ADL: Independent Occupation: retired [employer] worker Place of : [facility] History of Recent Travel: No Home Medications - Allergies Allergies/Adverse Reactions: Allergies Allergy/AdvReac Type Severity Reaction Status Date / Time No Known Allergies Allergy Verified 03/15/17 05:38 - Home Medications Home Medications: Ambulatory Orders Fluticasone/Salmeterol [Advair 250-50 Diskus] 1 each IH BID 07/06/19 Tiotropium [place] [Spiriva] 1 inh PO DAILY 10/27/18 Family Disease History - Family Disease History Family Disease History: CA: Father ( of lung cancer), Mother ( of pancreatic carcinoid tumor), Sister (vulvar cancer) Review of Systems - Review of Systems Constitutional: reports: No Symptoms Eyes: reports: No Symptoms HENT: reports: No Symptoms Neck: reports: No Symptoms Cardiovascular: reports: No Symptoms Respiratory: reports: Exercise Intolerance Gastrointestinal: reports: Abdominal Pain, Bloating Musculoskeletal: reports: Joint Pain Neurological: reports: Other (recent memory loss since RT and brain surgery) Endocrine: reports: No Symptoms Physical Exam-GI Vital Signs: Vital Signs Temperature 97.7 F 10/27/18 13:45 Pulse Rate 70 10/27/18 13:45 Respiratory Rate 18 10/27/18 13:45 Blood Pressure 100/58 L 10/27/18 13:45 O2 Sat by Pulse Oximetry (%) 97 10/27/18 05:00 CBC,CMP WBC 7.9 K/mm3 (4.0-10.0) 10/27/18 10:49 RBC 4.70 M/mm3 (3.60-5.2) 10/27/18 10:49 Hgb 13.5 GM/dL (10.7-15.3) 10/27/18 10:49 Hct 41.0 % (32.4-45.2) 10/27/18 10:49 MCV 87.2 fl (80-96) 10/27/18 10:49 MCH 28.6 pg (25.7-33.7) 10/27/18 10:49 MCHC 32.8 g/dl (32.0-36.0) 10/27/18 10:49 RDW 14.4 % (11.6-15.6) 10/27/18 10:49 Plt Count 301 K/MM3 (134-434) 10/27/18 10:49 MPV 7.8 fl (7.5-11.1) 10/27/18 10:49 Absolute Neuts (auto) 4.9 K/mm3 (1.5-8.0) 10/27/18 10:49 Neutrophils % 62.5 % (42.8-82.8) D 10/27/18 10:49 Lymphocytes % 28.7 % (8-40) D 10/27/18 10:49 Monocytes % 6.1 % (3.8-10.2) 10/27/18 10:49 Eosinophils % 2.5 % (0-4.5) D 10/27/18 10:49 Basophils % 0.2 % (0-2.0) 10/27/18 10:49 Nucleated RBC % 0 % (0-0) 10/27/18 10:49 Sodium 141 mmol/L (136-145) 10/27/18 10:49 Potassium 4.3 mmol/L (3.5-5.1) 10/27/18 10:49 Chloride 107 mmol/L (98-107) 10/27/18 10:49 Carbon Dioxide 29 mmol/L (21-32) 10/27/18 10:49 Anion Gap 6 MMOL/L (8-16) L 10/27/18 10:49 BUN 8.3 mg/dL (7-18) 10/27/18 10:49 Creatinine 0.9 mg/dL (0.55-1.3) 10/27/18 10:49 Est GFR (CKD-EPI)AfAm 80.55 10/27/18 10:49 Est GFR (CKD-EPI)NonAf 69.50 10/27/18 10:49 Random Glucose 91 mg/dL (74-106) 10/27/18 10:49 Lactic Acid 0.7 mmol/L (0.4-2.0) 10/26/18 18:40 Calcium 8.7 mg/dL (8.5-10.1) 10/27/18 10:49 Phosphorus 3.1 mg/dL (2.5-4.9) 10/27/18 10:49 Magnesium 2.3 mg/dL (1.8-2.4) 10/27/18 10:49 Total Bilirubin 0.4 mg/dL (0.2-1) 10/27/18 10:49 AST 10 U/L (15-37) L 10/27/18 10:49 ALT 17 U/L (13-61) 10/27/18 10:49 Alkaline Phosphatase 91 U/L (45-117) 10/27/18 10:49 Total Protein 7.1 g/dl (6.4-8.2) 10/27/18 10:49 Albumin 3.5 g/dl (3.4-5.0) 10/27/18 10:49 Total Amylase 65 U/L (25-115) 10/26/18 18:40 Lipase 282 U/L (73-393) 10/26/18 18:40 Current Medications Generic Name Dose Route Start Last Admin Trade Name Freq PRN Reason Stop Dose Admin Acetaminophen 1,000 mg 10/27/18 03:05 Ofirmev Injection - IVPB Q6H PRN PAIN LEVEL 6-10 Albuterol Sulfate 1 amp 10/27/18 03:06 10/27/18 06:25 Ventolin 0.083% Nebulizer Soln - NEB 1 amp Q6H PRN Administration SHORT OF BREATH/WHEEZING Budesonide/Formoterol Fumarate 2 puff 10/27/18 13:00 Symbicort 80/4.5mcg - IH BID KWESI Dextrose/Lactated Ringer's 1,000 mls @ 50 mls/hr 10/27/18 14:01 D5-Lr - IV ASDIR KWESI Morphine Sulfate 1 mg 10/27/18 12:37 Morphine Sulfate IVPUSH Q6H PRN PAIN LEVEL 7 - 10 Tiotropium [place] 2 puff 10/27/18 13:00 Spiriva Respimat IH DAILY KWESI Constitutional: Yes: No Distress Eyes: Yes: Conjunctiva Clear HENT: Yes: Normocephalic Neck: Yes: Supple Cardiovascular: Yes: Regular Rate and Rhythm Respiratory: Yes: CTA Bilaterally, Other (healed right thoracoscopy incisions) Gastrointestinal Inspection: Yes: Distention, Scars (healed transverse RLQ and vertical suprapubic incisions) ...Auscultate: Yes: Normoactive Bowel Sounds ...Palpate: Yes: Soft, Other (nontender) ...Rectal Exam: Yes: Guaiac Negative (no masses, brown guaiac negative stool) Edema: No Neurological: Yes: Alert, Oriented Labs: CBC, BMP 10/27/18 10:49 10/27/18 10:49 Imaging - Results Cat Scan: Image Reviewed (7mm pancreatic duct head and neck area, 6mm CBD) Problem List - Problems (1) Dilated pancreatic duct Code(s): K86.89 - OTHER SPECIFIED DISEASES OF PANCREAS (2) Dilated cbd, acquired Code(s): K83.8 - OTHER SPECIFIED DISEASES OF BILIARY TRACT (3) Lung cancer metastatic to brain Code(s): C34.90 - MALIGNANT NEOPLASM OF UNSP PART OF UNSP BRONCHUS OR LUNG; C79.31 - SECONDARY MALIGNANT NEOPLASM OF BRAIN (4) Memory loss due to medical condition Code(s): R41.3 - OTHER AMNESIA (5) History of appendectomy Code(s): Z90.49 - ACQUIRED ABSENCE OF OTHER SPECIFIED PARTS OF DIGESTIVE TRACT (6) Abdominal pain Code(s): R10.9 - UNSPECIFIED ABDOMINAL PAIN Qualifiers: Abdominal location: generalized Qualified Code(s): R10.84 - Generalized abdominal pain Assessment/Plan Impression: - The source of pain is not entirely clear. No actual pancreatitis seen and would expect vomiting with this. Given the dilated pancreatic and common bile ducts an underlying neoplasm and stone disease need to be excluded. The pain may ultimately reflect gaseous distension due to constipation - FH of pancreatic carcinoid Plan: -- Change MRCP to be done with contrast to exclude an IPMN of other pancreatic or bile duct neoplasms. Discussed with Dr Hou -- Ca 19.9 and AFP tumor markers -- Trial of clear liquids and advance diet as tolerated -- Will decrease RL rate -- Miralax -- If pain persists an EGD may prove necessary. I have also advised a repeat screening colonoscopy after discharge.
[2018-10-27] MEDS: TIOTROPIUM BROMIDE 2.5 MCG (SPIRIVA) RESPIMAT INHALER IH SCH (16:12)
[2018-10-27] MEDS: BUDESONIDE/FORMETEROL FUMARATE 80/4.5 mcg INHALER IH SCH ×2 (16:12→21:39)
[2018-10-27] MEDS: ONDANSETRON 4 MG/2 ML VIAL IVPUSH PRN (18:34)
[2018-10-27] MEDS: ACETAMINOPHEN 1000 MG/100 ML VIAL (NON FORMULARY) IVPB PRN (20:34)
[2018-10-27] MEDS: PANTOPRAZOLE 40 MG TABLET (FP) PO SCH (21:40)
[2018-10-27] MEDS: POLYETHYLENE GLYCOL 3350 119 GM BTL PO SCH (21:40)
[2018-10-28 07:57] LABS: ALBUMIN 3.5 g/dl (3.4-5.0); BASO % 0.3 % (0-2.0); BILIRUBIN,DIRECT 0.1 mg/dL (0.0-0.2); BILIRUBIN,TOTAL 0.3 mg/dL (0.2-1); BLOOD UREA NITROGEN 6.2 mg/dL (7-18); CALCIUM 9.1 mg/dL (8.5-10.1); EOS % 3.9 % (0-4.5); HEMATOCRIT 43.1 % (32.4-45.2); MAGNESIUM 2.3 mg/dL (1.8-2.4); MCH 28.4 pg (25.7-33.7); MCHC 32.4 g/dl (32.0-36.0); MEAN CELL VOLUME 87.8 fl (80-96); MEAN PLT VOLUME 8.1 fl (7.5-11.1); MONO % 7.8 % (3.8-10.2); PHOSPHOROUS 3.9 mg/dL (2.5-4.9); PLATELET COUNT 287 K/MM3 (134-434); POTASSIUM 4.3 mmol/L (3.5-5.1); RBC 4.91 M/mm3 (3.60-5.2); RDW 14.5 % (11.6-15.6)
[2018-10-28] MEDS: ONDANSETRON 4 MG/2 ML VIAL IVPUSH PRN (09:33)
[2018-10-28] MEDS: POLYETHYLENE GLYCOL 3350 119 GM BTL PO SCH ×2 (09:34→21:14)
[2018-10-28] MEDS: PANTOPRAZOLE 40 MG TABLET (FP) PO SCH ×2 (09:34→21:13)
[2018-10-28] MEDS: BUDESONIDE/FORMETEROL FUMARATE 80/4.5 mcg INHALER IH SCH ×2 (09:36→21:13)
[2018-10-28] MEDS: TIOTROPIUM BROMIDE 2.5 MCG (SPIRIVA) RESPIMAT INHALER IH SCH (09:36)
--- NOTE | 2018-10-28 11:10 | PN ---
Physical Exam: SUBJECTIVE: Patient seen and examined, still with abdominal/RUQ pain, passing gas, no BM. no nausea/vomitting noted. OBJECTIVE: Vital Signs Period Temp Pulse Resp BP Sys/Artis Pulse Ox Last 24 Hr 97.4 F-98.6 F 68-94 18-20 98-106/55-73 95 Intake & Output 10/25/18 10/26/18 10/27/18 10/28/18 23:59 23:59 23:59 23:59 Intake Total 100 1450 350 Balance 100 1450 350 Weight 220 lb 215 lb 2 oz GENERAL: lying in bed in no acute distress Chest: CTAB, no rales or wheezing Abdomen:Soft, obese, sheree-umbilical tenderness, mild RUQ tenderness, neg Bravo' s sign, no voluntary or involuntary guarding or rigidity, pos bowel sounds Extremities: no edema Neck: soft, supple CVS:S1S2 regular Laboratory Results - last 24 hr 10/27/18 10/27/18 10/28/18 10:49 10:49 06:15 WBC 7.9 6.0 RBC 4.70 4.91 Hgb 13.5 14.0 Hct 41.0 43.1 MCV 87.2 87.8 MCH 28.6 28.4 MCHC 32.8 32.4 RDW 14.4 14.5 Plt Count 301 287 MPV 7.8 8.1 Absolute Neuts (auto) 4.9 3.1 Neutrophils % 62.5 D 51.0 Lymphocytes % 28.7 D 37.0 D Monocytes % 6.1 7.8 Eosinophils % 2.5 D 3.9 Basophils % 0.2 0.3 Nucleated RBC % 0 0 Sodium 141 Potassium 4.3 Chloride 107 Carbon Dioxide 29 Anion Gap 6 L BUN 8.3 Creatinine 0.9 Est GFR (CKD-EPI)AfAm 80.55 Est GFR (CKD-EPI)NonAf 69.50 Random Glucose 91 Calcium 8.7 Phosphorus 3.1 Magnesium 2.3 Total Bilirubin 0.4 Direct Bilirubin GGT AST 10 L ALT 17 Alkaline Phosphatase 91 C-Reactive Protein Total Protein 7.1 Albumin 3.5 Lipase 10/28/18 10/28/18 06:15 06:15 WBC RBC Hgb Hct MCV MCH MCHC RDW Plt Count MPV Absolute Neuts (auto) Neutrophils % Lymphocytes % Monocytes % Eosinophils % Basophils % Nucleated RBC % Sodium 144 Potassium 4.3 Chloride 108 H Carbon Dioxide 32 Anion Gap 4 L BUN 6.2 L Creatinine 1.0 Est GFR (CKD-EPI)AfAm 70.91 Est GFR (CKD-EPI)NonAf 61.19 Random Glucose 92 Calcium 9.1 Phosphorus 3.9 Magnesium 2.3 Total Bilirubin 0.3 Direct Bilirubin 0.1 GGT 25 AST 12 L ALT 17 Alkaline Phosphatase 86 C-Reactive Protein 1.3 H Total Protein 7.0 Albumin 3.5 Lipase 151 Active Medications Generic Name Dose Route Start Last Admin Trade Name Freq PRN Reason Stop Dose Admin Acetaminophen 1,000 mg 10/27/18 03:05 10/27/18 20:34 Ofirmev Injection - IVPB 1,000 mg Q6H PRN Administration PAIN LEVEL 6-10 Albuterol Sulfate 1 amp 10/27/18 03:06 10/27/18 06:25 Ventolin 0.083% Nebulizer Soln - NEB 1 amp Q6H PRN Administration SHORT OF BREATH/WHEEZING Budesonide/Formoterol Fumarate 2 puff 10/27/18 13:00 10/28/18 09:36 Symbicort 80/4.5mcg - IH 2 puff BID KEWSI Administration Morphine Sulfate 1 mg 10/27/18 12:37 10/28/18 09:33 Morphine Sulfate IVPUSH 1 mg Q6H PRN Administration PAIN LEVEL 7 - 10 Ondansetron HCl 4 mg 10/27/18 18:16 10/28/18 09:33 Zofran Injection IVPUSH 4 mg Q6H PRN Administration NAUSEA AND/OR VOMITING Pantoprazole Sodium 40 mg 10/27/18 22:00 10/28/18 09:34 Protonix - PO 40 mg BID KWESI Administration Polyethylene Glycol 17 gm 10/27/18 22:00 10/28/18 09:34 Miralax (For Daily Use) - PO 17 grams BID KWESI Administration Tiotropium [place] 2 puff 10/27/18 13:00 10/28/18 09:36 Spiriva Respimat IH 2 puff DAILY KWESI Administration ASSESSMENT/PLAN: 58 yof with PMhx of Lung ca s/p right lobectomy, Brain metastasis s/p surgery/ radiation 1 year ago, COPD, admitted with generalized abdominal pain after having a smoothie. -Abdominal pain, ?gastroenteritis vs hepatic, less likely Data Developer etiology -CBD dilatation -Ovarian cyst -Lung ca s/p right lobectomy -Brain metastasis s/p surgery/radiation 1 year ago -COPD Plan: Follow up MRCP GI input noted, follow CA 19-9, TGA ab. Trend labs. PO clears, Increase IVF. Data Developer input noted, outpatient follow up. SCDs, encourage ambulation. Dispo pending above imaging, GI input and clinical improvement. Plan discussed with patient and nursing in detail, all questions answered. Visit type - Emergency Visit Emergency Visit: Yes ED Registration Date: 10/26/18 Care time: The patient presented to the Emergency Department on the above date and was hospitalized for further evaluation of their emergent condition. - New Patient This patient is new to me today: No - Critical Care Critical Care patient: No - Discharge Referral Referred to [facility] No
[2018-10-28] MEDS: ACETAMINOPHEN 1000 MG/100 ML VIAL (NON FORMULARY) IVPB PRN (12:08)
[2018-10-28] MEDS: DEXTROSE 5%-LACTATED RINGERS 1,000 ML IV SCH ×2 (12:23→14:42)
--- NOTE | 2018-10-28 15:17 | PN.GI ---
GI Progress Note Subjective: GI NOte ( covering the [facility] GI service): Had pain earlier today but is pain free and hungry at present. I discussed stopping the morphine and trying a solid diet with Charity and she wishes to proceed. MRCP/MRI done but not read. I do not see any obvious abnormality but need official radiology reading. Ca 19.9 pending - Objective Vital Signs: Vital Signs Temperature 98.6 F 10/28/18 11:00 Pulse Rate 68 10/28/18 11:00 Respiratory Rate 18 10/28/18 11:00 Blood Pressure 98/55 L 10/28/18 11:00 O2 Sat by Pulse Oximetry (%) 95 10/27/18 21:00 Laboratory Tests 10/28/18 10/28/18 10/28/18 06:15 06:15 06:15 Total Bilirubin 0.3 Direct Bilirubin 0.1 GGT 25 AST 12 L ALT 17 Alkaline Phosphatase 86 C-Reactive Protein 1.3 H Lipase 151 CA 19-9 Antigen Pending Constitutional: Anxious ...Auscultate: Yes: Normoactive Bowel Sounds ...Palpate: Yes: Soft, Other (nontender) Labs: CBC, BMP 10/28/18 06:15 10/28/18 06:15 Assessment/Plan Impression: - The source of pain is not entirely clear. Given the dilated pancreatic and common bile ducts an underlying neoplasm and stone disease need to be excluded. The pain may ultimately reflect gaseous distension due to constipation - FH of pancreatic carcinoid Plan: -- Await MRCP/MRI reading to exclude an IPMN of other pancreatic or bile duct neoplasms. -- Ca 19.9 and AFP tumor markers -- Will stop narcotic and advance the diet and stop the IV -- Miralax -- If pain persists an EGD may prove necessary. I have also advised a repeat screening colonoscopy after discharge. 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
[2018-10-28] MEDS ORDERED: INSULIN (NOVOLOG MIX 70/30) 100 UNITS/ML MDV SQ ONE (18:45)
[2018-10-28] MEDS ORDERED: INSULIN (NOVOLOG) ASPART 100 UNITS/ML 10ML VIAL ONE (18:45)
[2018-10-29 07:17] LABS: ALBUMIN 3.1 g/dl (3.4-5.0); BILIRUBIN,TOTAL 0.2 mg/dL (0.2-1); BLOOD UREA NITROGEN 7.2 mg/dL (7-18); CALCIUM 8.7 mg/dL (8.5-10.1); CREATININE 0.9 mg/dL (0.55-1.3); MAGNESIUM 2.2 mg/dL (1.8-2.4); PHOSPHOROUS 3.6 mg/dL (2.5-4.9); POTASSIUM 3.9 mmol/L (3.5-5.1); TOT PROT 6.4 g/dl (6.4-8.2)
[2018-10-29 07:27] LABS: BASO % 0.2 % (0-2.0); EOS % 2.5 % (0-4.5); HEMATOCRIT 40.4 % (32.4-45.2); HEMOGLOBIN 13.3 GM/dL (10.7-15.3); LYMPH % 32.3 % (8-40); MCH 28.6 pg (25.7-33.7); MCHC 32.8 g/dl (32.0-36.0); MEAN CELL VOLUME 87.4 fl (80-96); MEAN PLT VOLUME 7.9 fl (7.5-11.1); MONO % 6.9 % (3.8-10.2); NEUT % 58.1 % (42.8-82.8); PLATELET COUNT 262 K/MM3 (134-434); RBC 4.63 M/mm3 (3.60-5.2); RDW 14.6 % (11.6-15.6); WHITE BLOOD COUNT 6.2 K/mm3 (4.0-10.0)
--- NOTE | 2018-10-29 09:30 | PN ---
Physical Exam: SUBJECTIVE: Patient seen and examined OBJECTIVE: Vital Signs Period Temp Pulse Resp BP Sys/Artis Pulse Ox Last 24 Hr 98.1 F-98.6 F 68-83 16-20 93-105/55-73 97-97 GENERAL: The patient is awake, alert, and fully oriented, in no acute distress. HEAD: Normal with no signs of trauma. EYES: PERRL, extraocular movements intact, sclera anicteric, conjunctiva clear. No ptosis. ENT: Ears normal, nares patent, oropharynx clear without exudates, moist mucous membranes. NECK: Trachea midline, full range of motion, supple. LUNGS: Breath sounds equal, clear to auscultation bilaterally, no wheezes, no crackles, no accessory muscle use. HEART: Regular rate and rhythm, S1, S2 without murmur, rub or gallop. ABDOMEN: Soft, nontender, nondistended, normoactive bowel sounds, no guarding, no rebound, no hepatosplenomegaly, no masses. EXTREMITIES: 2+ pulses, warm, well-perfused, no edema. NEUROLOGICAL: Cranial nerves II through XII grossly intact. Normal speech, gait not observed. PSYCH: Normal mood, normal affect. SKIN: Warm, dry, normal turgor, no rashes or lesions noted Laboratory Results - last 24 hr 10/29/18 10/29/18 05:40 05:41 WBC 6.2 RBC 4.63 Hgb 13.3 Hct 40.4 MCV 87.4 MCH 28.6 MCHC 32.8 RDW 14.6 Plt Count 262 MPV 7.9 Absolute Neuts (auto) 3.6 Neutrophils % 58.1 Lymphocytes % 32.3 Monocytes % 6.9 Eosinophils % 2.5 Basophils % 0.2 Nucleated RBC % 0 Sodium 144 Potassium 3.9 Chloride 110 H Carbon Dioxide 27 Anion Gap 6 L BUN 7.2 Creatinine 0.9 Est GFR (CKD-EPI)AfAm 80.55 Est GFR (CKD-EPI)NonAf 69.50 Random Glucose 89 Calcium 8.7 Phosphorus 3.6 Magnesium 2.2 Total Bilirubin 0.2 AST 11 L ALT 16 Alkaline Phosphatase 75 Total Protein 6.4 Albumin 3.1 L Active Medications Generic Name Dose Route Start Last Admin Trade Name Freq PRN Reason Stop Dose Admin Acetaminophen 1,000 mg 10/27/18 03:05 10/28/18 12:08 Ofirmev Injection - IVPB 1,000 mg Q6H PRN Administration PAIN LEVEL 6-10 Albuterol Sulfate 1 amp 10/27/18 03:06 10/27/18 06:25 Ventolin 0.083% Nebulizer Soln - NEB 1 amp Q6H PRN Administration SHORT OF BREATH/WHEEZING Budesonide/Formoterol Fumarate 2 puff 10/27/18 13:00 10/28/18 21:13 Symbicort 80/4.5mcg - IH 2 puff BID KWESI Administration Ondansetron HCl 4 mg 10/27/18 18:16 10/28/18 09:33 Zofran Injection IVPUSH 4 mg Q6H PRN Administration NAUSEA AND/OR VOMITING Pantoprazole Sodium 40 mg 10/27/18 22:00 10/28/18 21:13 Protonix - PO 40 mg BID KWESI Administration Polyethylene Glycol 17 gm 10/27/18 22:00 10/28/18 21:14 Miralax (For Daily Use) - PO 17 grams BID KWESI Administration Tiotropium [place] 2 puff 10/27/18 13:00 10/28/18 09:36 Spiriva Respimat IH 2 puff DAILY KWESI Administration ASSESSMENT/PLAN: ATTENDING PHYSICIAN STATEMENT I saw and evaluated the patient. I reviewed the resident's note and discussed the case with the resident. I agree with the resident's findings and plan as documented. SUBJECTIVE: OBJECTIVE: ASSESSMENT AND PLAN:
[2018-10-29] MEDS ORDERED: PT OWN MED DRAWER 7, Y5N ONE (09:56)
[2018-10-29] MEDS: PANTOPRAZOLE 40 MG TABLET (FP) PO SCH (10:07)
[2018-10-29] MEDS: POLYETHYLENE GLYCOL 3350 119 GM BTL PO SCH (10:07)
[2018-10-29] MEDS: BUDESONIDE/FORMETEROL FUMARATE 80/4.5 mcg INHALER IH SCH (10:08)
[2018-10-29] MEDS: TIOTROPIUM BROMIDE 2.5 MCG (SPIRIVA) RESPIMAT INHALER IH SCH (10:09)
--- NOTE | 2018-10-29 11:57 | PN ---
Progress Note (short form) - Note Progress Note: Patient seen and examined Labs reviewed Reports resolution of abdominal pain Tolerating regular diet Vital Signs Temp 98.1 F 10/29/18 06:00 Pulse 72 10/29/18 06:00 Resp 18 10/29/18 09:00 BP 97/68 10/29/18 06:00 Pulse Ox 97 10/29/18 09:00 NAD Abd soft NT ND CBC, BMP 10/29/18 05:41 10/29/18 05:40 Hepatic Panel Total Bilirubin 0.2 mg/dL (0.2-1) 10/29/18 05:40 Direct Bilirubin 0.1 mg/dL (0.0-0.2) 10/28/18 06:15 AST 11 U/L (15-37) L 10/29/18 05:40 ALT 16 U/L (13-61) 10/29/18 05:40 Alkaline Phosphatase 75 U/L (45-117) 10/29/18 05:40 Albumin 3.1 g/dl (3.4-5.0) L 10/29/18 05:40 MRCP reviewed, possible small duodenal diverticulum, follow up exam recommended in 3 months to rule out small occult lesion Impression: abdominal pain - largely resolved Short interval follow up abdominal MRI/MRCP in 3 mo
--- NOTE | 2018-10-29 13:56 | PN ---
Teaching Attending Note Name of Resident: Dory Adams ATTENDING PHYSICIAN STATEMENT I saw and evaluated the patient. I reviewed the resident's note and discussed the case with the resident. I agree with the resident's findings and plan as documented with exceptions below. SUBJECTIVE: Patient seen and examined. pain improved, tolerating diet well. OBJECTIVE: Vital Signs Period Temp Pulse Resp BP Sys/Artis Pulse Ox Last 24 Hr 98.1 F-98.8 F 72-83 16-20 93-105/65-73 97-97 Intake & Output 10/26/18 10/27/18 10/28/18 10/29/18 23:59 23:59 23:59 23:59 Intake Total 100 1450 850 Balance 100 1450 850 Weight 220 lb 215 lb 2 oz General: sitting in bed in in no acute distress Chest: CTAB, no rales or wheezing CVS:S1S2 regular Abdomen:soft, obese, NT Extremities: no edema Neck: soft, supple, no JVD Home Medications Medication Instructions Recorded Fluticasone/Salmeterol [Advair 1 each IH BID 10/27/18 250-50 Diskus] Tiotropium [place] [Spiriva] 1 inh PO DAILY 10/27/18 Active Medications Acetaminophen (Ofirmev Injection -) 1,000 mg IVPB Q6H PRN PRN Reason: PAIN LEVEL 6-10 Last Admin: 10/28/18 12:08 Dose: 1,000 mg Albuterol Sulfate (Ventolin 0.083% Nebulizer Soln -) 1 amp NEB Q6H PRN PRN Reason: SHORT OF BREATH/WHEEZING Last Admin: 10/27/18 06:25 Dose: 1 amp Budesonide/Formoterol Fumarate (Symbicort 80/4.5mcg -) 2 puff IH BID [facility] Last Admin: 10/29/18 10:08 Dose: 2 puff Ondansetron HCl (Zofran Injection) 4 mg IVPUSH Q6H PRN PRN Reason: NAUSEA AND/OR VOMITING Last Admin: 10/28/18 09:33 Dose: 4 mg Pantoprazole Sodium (Protonix -) 40 mg PO BID KWESI Last Admin: 10/29/18 10:07 Dose: 40 mg Polyethylene Glycol (Miralax (For Daily Use) -) 17 gm PO BID [facility] Last Admin: 10/29/18 10:07 Dose: Not Given Tiotropium [place] (Spiriva Respimat) 2 puff IH DAILY KWESI Last Admin: 10/29/18 10:09 Dose: 2 puff Laboratory Results - last 24 hr 10/29/18 10/29/18 05:40 05:41 WBC 6.2 RBC 4.63 Hgb 13.3 Hct 40.4 MCV 87.4 MCH 28.6 MCHC 32.8 RDW 14.6 Plt Count 262 MPV 7.9 Absolute Neuts (auto) 3.6 Neutrophils % 58.1 Lymphocytes % 32.3 Monocytes % 6.9 Eosinophils % 2.5 Basophils % 0.2 Nucleated RBC % 0 Sodium 144 Potassium 3.9 Chloride 110 H Carbon Dioxide 27 Anion Gap 6 L BUN 7.2 Creatinine 0.9 Est GFR (CKD-EPI)AfAm 80.55 Est GFR (CKD-EPI)NonAf 69.50 Random Glucose 89 Calcium 8.7 Phosphorus 3.6 Magnesium 2.2 Total Bilirubin 0.2 AST 11 L ALT 16 Alkaline Phosphatase 75 Total Protein 6.4 Albumin 3.1 L Microbiology 10/26/18 19:00 Urine - Urine Clean Catch Urine Culture - Final NO GROWTH OBTAINED ASSESSMENT AND PLAN: 58 yof with PMhx of Lung ca s/p right lobectomy, Brain metastasis s/p surgery/ radiation 1 year ago, COPD, admitted with generalized abdominal pain after having a smoothie. 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 Outpatient MRI in 3 [facility]. GI input noted, follow CA 19-9, TGA ab. tolerating diet well D/c home today with outpatient GI follow up Plan discussed with patient in detail, all questions answered.
[2018-10-29 14:39] VITALS: BP 100/69; PULSE 80; TEMP 98.5
[2018-10-29 16:07] LABS: TRANSGLUTAMINASE IGA < 2 U/mL (0-3); TRANSGLUTAMINASE IGG < 2 U/mL (0-5)
--- NOTE | 2018-10-29 18:52 | DS ---
Physical Exam: SUBJECTIVE: Patient seen and examined. No more vomiting, with mild nausea, abdominal pain improved. No chest pain, no SOB. Pending report of MRCP OBJECTIVE: Vital Signs Period Temp Pulse Resp BP Sys/Artis Pulse Ox Last 24 Hr 98.1 F-98.8 F 72-83 16-20 97-105/68-73 97-97 Vital Signs Temp 98.5 F 10/29/18 14:39 Pulse 80 10/29/18 14:39 Resp 20 10/29/18 14:39 BP 100/69 10/29/18 14:39 Pulse Ox 97 10/29/18 09:00 Intake & Output 10/28/18 10/29/18 10/29/18 23:59 11:59 23:59 Intake Total 500 500 Balance 500 500 Intake: IV 0 s/l 0 IVPB 100 Oral 400 500 Other: Voiding Method Toilet Toilet # Unmeasured Voids Void 2 2 Bowel Movement No No PHYSICAL EXAM GENERAL: Obese female , awake, alert, and fully oriented, in no acute distress. EYES: PERRL, extraocular movements intact, sclera anicteric, ENT: Ears normal, nares patent, oropharynx clear without exudates, moist mucous membranes. LUNGS: Breath sounds equal, clear to auscultation bilaterally, no wheezes, no crackles HEART: Regular rate and rhythm, S1, S2 ABDOMEN: Soft, mild RUQ tenderness, Mild periumbilical tenderness, obese, nondistended, normoactive bowel sounds EXTREMITIES: 2+ pulses, warm, well-perfused, no edema. NEUROLOGICAL: Cranial nerves II through XII grossly intact. Normal speech, gait not observed. CBC, BMP 10/29/18 05:41 10/29/18 05:40 LABS Laboratory Results - last 24 hr 10/28/18 10/29/18 10/29/18 06:15 05:40 05:41 WBC 6.2 RBC 4.63 Hgb 13.3 Hct 40.4 MCV 87.4 MCH 28.6 MCHC 32.8 RDW 14.6 Plt Count 262 MPV 7.9 Absolute Neuts (auto) 3.6 Neutrophils % 58.1 Lymphocytes % 32.3 Monocytes % 6.9 Eosinophils % 2.5 Basophils % 0.2 Nucleated RBC % 0 Sodium 144 Potassium 3.9 Chloride 110 H Carbon Dioxide 27 Anion Gap 6 L BUN 7.2 Creatinine 0.9 Est GFR (CKD-EPI)AfAm 80.55 Est GFR (CKD-EPI)NonAf 69.50 Random Glucose 89 Calcium 8.7 Phosphorus 3.6 Magnesium 2.2 Total Bilirubin 0.2 AST 11 L ALT 16 Alkaline Phosphatase 75 Total Protein 6.4 Albumin 3.1 L Tiss Transglutamin IgG < 2 Tiss Transglutamin IgA < 2 Laboratory Tests 10/28/18 06:15 CA 19-9 Antigen 49 H Tiss Transglutamin IgG < 2 Tiss Transglutamin IgA < 2 CTAP : Main pancreatic duct at level of head and neck reveal nonspecific dilatation of 0.7cm. Probable diffuse hepatic steatosis. mild Sigmoid diverticulosis with no evidence of acute diverticulitis. Small amount of pelvic ascites and mild subtle enlargement of the right ovary. MRCP: R Basilar linear scarring . L posterior dependent lung atelectasis. Atrophy of pancreatic body/tail compared to head. Pancreatic duct in head region 5mm. Duct in body 2-3mm and duct in tail 1mmm. 1.4T1 hyperintensity lesion of pancreatic head/infarct with susceptible infarct possibly small duodenal diverticulum. Distended gall bladder with stones/sludge. No abnormal gall bladder wall thickening /surrounding edema. ERCP with endoscopic US or short term MRI in 3 months to exclude occult lesion. HOSPITAL COURSE: Date of Admission:10/26/18 Date of Discharge: 10/29/18 Patient is a 58 year old female with past medical history of lung ca s/p lobectomy, brain cancer s/p surgery, asthma, COPD, presented to the ED due to sudden onset severe diffuse abdominal pain that started yesterday afternoon. Patient reported she was feeling okay during the day, later on had some smoothie , which she normally has, and afterwards experienced sudden diffuse abdominal pain. This was accompanied by nausea and NBNB vomiting. Patient denies any fever , chills, headache, dizziness, chest pain, SOB, diarrhea, constipation, urinary symptoms. There was concern for small cut pelvic ascites and mild subtle enlargement of right ovary may be concerning for malignancy on preliminary imaging and banquet lead was consulted (Dr Arreola). TVUs was not concerning for pathology and patient was referred for outpatient pap smear. Nausea and vomiting resolved, pt was seen by GI and scheduled for out patient follow up with repeat imaging in 3 months. Minutes to complete discharge: 40 Discharge Summary Reason For Visit: ABDOMINAL PAIN Condition: Stable - Instructions Diet, Activity, Other Instructions: You came in for abdominal pain that has resolved. You got an MRI of your abdomen You will need a repeat MRI in 3 months to check for any growth around the pancreas/duodenum. You may use over the counter prilosec as needed and miralax Continue your home medications as prescribed. Follow up with a GI doctor in a week Please follow up with Integrated Circuit Design Engineer for routine check up in 1-2 months. Follow up with your primary care physician in one week PENDING BLOOD TESTS: CA 19-9 and Transglutaminase Ab blood test results are pending, please have your doctor follow up on results or discuss with Dr. Gottlieb on next visit in 1- 2 weeks. If you feel your symptoms are not getting better, with worsening abdominal pain , fever, worsening nausea and vomiting, please go to the nearest emergency room Referrals: Perla Arreola MD [Staff Physician] - Roger Gottlieb MD [Staff Physician] - 1 Week Disposition: HOME - Home Medications Comprehensive Discharge Medication List: Ambulatory Orders Fluticasone/Salmeterol [Advair 250-50 Diskus] 1 each IH BID 10/27/18 Tiotropium [place] [Spiriva] 1 inh PO DAILY 10/27/18 This patient is new to me today: Yes Date on this admission: 10/29/18 Emergency Visit: Yes ED Registration Date: 10/26/18 Care time: The patient presented to the Emergency Department on the above date and was hospitalized for further evaluation of their emergent condition. Critical Care patient: No - Discharge Referral Referred to [facility] No ATTENDING PHYSICIAN STATEMENT I saw and evaluated the patient. I reviewed the resident's note and discussed the case with the resident. I agree with the resident's findings and plan as documented. SUBJECTIVE: OBJECTIVE: ASSESSMENT AND PLAN:
== END 2018-10-29 17:45 | disposition home or self-care (01) | DRG 392 ==
LOC: JER 17:21 → JERBED 23:44 → J8W 10-27 03:45
PROVIDERS: ADMIT Internal Medicine; ATTEND Hospitalist
DX: K57.10 Diverticulosis of small intestine without perforation or abscess without bleeding (principal); R18.8 Other ascites; J98.11 Atelectasis; J44.9 Chronic obstructive pulmonary disease, unspecified; J45.909 Unspecified asthma, uncomplicated; E66.9 Obesity, unspecified; Z68.35 Body mass index [BMI] 35.0-35.9, adult; K86.89 Other specified diseases of pancreas; K83.9 Disease of biliary tract, unspecified; N83.201 Unspecified ovarian cyst, right side; Z85.841 Personal history of malignant neoplasm of brain; Z85.110 Personal history of malignant carcinoid tumor of bronchus and lung; R10.9 Unspecified abdominal pain
CPT/HCPCS: 36415; 74177-TC; 74182-TC; 76705-TC; 76830-TC; 80048; 80053; 80076; 81003; 82150; 82977; 83516; 83605; 83690; 83735; 84100; 85025; 86140; 86301; 87086; 94640; 99283-25; A9579; J0131; J7030

== ENCOUNTER 2020-09-16 18:47 | Inpatient (IN) | payer OTHER, BC ==
[2020-09-16] MEDS ORDERED: SODIUM CHLORIDE 1,000 ML IV SCH (19:30)
[2020-09-16 20:25] LABS: BASO % 0.3 % (0-2.0); EOS % 3.8 % (0-4.5); HEMATOCRIT 40.2 % (32.4-45.2); HEMOGLOBIN 13.2 GM/dL (10.7-15.3); LYMPH % 25.2 % (8-40); MCH 28.9 pg (25.7-33.7); MEAN CELL VOLUME 87.6 fl (80-96); MEAN PLT VOLUME 8.2 fl (7.5-11.1); MONO % 6.6 % (3.8-10.2); NEUT % 64.1 % (42.8-82.8); PLATELET COUNT 291 K/MM3 (134-434); RBC 4.58 M/mm3 (3.60-5.2); RDW 14.6 % (11.6-15.6); WHITE BLOOD COUNT 9.5 K/mm3 (4.0-10.0)
[2020-09-16 20:29] LABS: EPI CELLS 6 /uL (0-25.1); HYALINE CASTS 0 /uL (0-3.1); PH,URINE 6.5 (5.0-8.0); URINE APPEARANCE CLEAR; URINE BACTERIA 202 /uL (0-1359); URINE BILIRUBIN NEGATIVE (NEGATIVE); URINE COLOR YELLOW; URINE GLUCOSE (UA) NEGATIVE (NEGATIVE); URINE KETONE NEGATIVE (NEGATIVE); URINE LEUK ESTERASE TRACE (NEGATIVE); URINE NITRITE NEGATIVE (NEGATIVE); URINE PROTEIN NEGATIVE (NEGATIVE); URINE RBC 3 /uL (0-23.9); URINE UROBILINOGEN 0.2 mg/dL (0.2-1.0); URINE WBC 16 /uL (0-25.8)
[2020-09-16 20:31] LABS: INR 1.04 (0.83-1.09); PROTHROMBIN TIME (PATIENT) 12.8 SEC (9.7-13.0)
[2020-09-16 20:33] LABS: ACTIVATED PTT 29.7 SECONDS (25.2-36.5)
[2020-09-16 20:43] LABS: CHLORIDE 107 mmol/L (98-107); SODIUM 142 mmol/L (136-145)
[2020-09-16 20:45] LABS: CALCIUM 9.2 mg/dL (8.5-10.1)
[2020-09-16 20:46] LABS: ALBUMIN 3.9 g/dl (3.4-5.0); ANION GAP 7 MMOL/L (8-16); BLOOD UREA NITROGEN 14.4 mg/dL (7-18); CO2 29 mmol/L (21-32); GLUCOSE,RANDOM 105 mg/dL (74-106)
[2020-09-16 20:49] LABS: CHOLESTEROL 257 mg/dL (50-200); CREATININE 0.8 mg/dL (0.55-1.3); SGOT/AST 11 U/L (15-37); SGPT/ALT 16 U/L (13-61)
[2020-09-16 20:50] LABS: BILIRUBIN,TOTAL 0.2 mg/dL (0.2-1); LDL CHOLESTEROL (ONLY SJRH) 145 mg/dL (5-100); TOT PROT 7.3 g/dl (6.4-8.2); TRIGLYCERIDES 83 mg/dL (0-150)
[2020-09-16 20:51] LABS: ALK PHOS 83 U/L (45-117); HDL CHOLESTEROL 71 mg/dL (40-60)
[2020-09-16] MEDS ORDERED: levETIRAcetam 500 MG TABLET (FP) PO ONE ×3 (22:08→22:31)
[2020-09-16] MEDS ORDERED: DEXAMETHASONE 4 MG TABLET (FP) ONE (22:18)
[2020-09-16] MEDS ORDERED: DEXAMETHASONE 4 MG TABLET (FP) PO ONE (22:30)
[2020-09-17] MEDS ORDERED: LORazepam 2 MG/ML SDV VIAL IVPUSH PRN (02:28)
[2020-09-17] MEDS ORDERED: ALBUTEROL SO4 2.5/IPRATROPIUM 0.5 INH SOL 3 ML VIAL.NEB. NEB PRN (04:33)
[2020-09-17] MEDS ORDERED: SODIUM CHLORIDE 1,000 ML IV SCH (04:45)
[2020-09-17 05:18] VITALS: BMI 35.5
[2020-09-17] MEDS: INSULIN SLIDING SCALE (NOVOLOG) 1 VIAL SQ SCH ×4 (06:07→23:55)
[2020-09-17 07:13] LABS: HEMATOCRIT 42.8 % (32.4-45.2); HEMOGLOBIN 14.1 GM/dL (10.7-15.3); MCH 29.3 pg (25.7-33.7); MCHC 32.9 g/dl (32.0-36.0); MEAN PLT VOLUME 8.2 fl (7.5-11.1); PLATELET COUNT 293 K/MM3 (134-434); RBC 4.81 M/mm3 (3.60-5.2); RDW 14.4 % (11.6-15.6); WHITE BLOOD COUNT 7.7 K/mm3 (4.0-10.0)
[2020-09-17 07:34] LABS: BLOOD UREA NITROGEN 11.2 mg/dL (7-18); CALCIUM 9.5 mg/dL (8.5-10.1); MAGNESIUM 2.1 mg/dL (1.8-2.4)
[2020-09-17 07:37] LABS: CREATININE 0.8 mg/dL (0.55-1.3)
[2020-09-17 07:38] LABS: PHOSPHOROUS 3.1 mg/dL (2.5-4.9); TOT PROT 7.5 g/dl (6.4-8.2)
[2020-09-17 07:40] LABS: BILIRUBIN,TOTAL 0.3 mg/dL (0.2-1)
[2020-09-17] MEDS ORDERED: DEXAMETHASONE SOD PHOSPHATE 4 MG/1 ML VIAL IVPUSH SCH (10:00)
[2020-09-17] MEDS: levETIRAcetam 500 MG/5 ML INJECTION VIAL IVPB SCH ×2 (10:38→22:19)
[2020-09-17] MEDS: DEXAMETHASONE SOD PHOSPHATE 4 MG/1 ML VIAL IVPUSH SCH (17:02)
[2020-09-17] MEDS: ALBUTEROL SO4 HFA INHALER IH PRN (17:07)
[2020-09-17] MEDS: ACETAMINOPHEN 325 MG TABLET (FP) PO PRN ×2 (17:35→23:57)
[2020-09-17] MEDS ORDERED: DEXAMETHASONE 4 MG TABLET (FP) PO ONE (22:08)
[2020-09-17] MEDS: FAMOTIDINE 20 MG/50 ML IVPB 20 MG/50 ML MG IVPB SCH (22:20)
[2020-09-17] MEDS: Lacosamide 200 MG/20 ML VIAL IVPB SCH (22:20)
[2020-09-17] MEDS: BUDESONIDE/FORMETEROL FUMARATE 80/4.5 mcg INHALER IH SCH (22:34)
[2020-09-18] MEDS: DEXAMETHASONE SOD PHOSPHATE 4 MG/1 ML VIAL IVPUSH SCH ×2 (01:36→09:08)
[2020-09-18 02:21] VITALS: TEMP 98.3
[2020-09-18 07:31] LABS: BASO % 0.1 % (0-2.0); HEMATOCRIT 42.2 % (32.4-45.2); LYMPH % 10.3 % (8-40); MCH 29.5 pg (25.7-33.7); MCHC 33.1 g/dl (32.0-36.0); MEAN CELL VOLUME 89.1 fl (80-96); MEAN PLT VOLUME 8.3 fl (7.5-11.1); MONO % 0.9 % (3.8-10.2); NEUT % 88.7 % (42.8-82.8); PLATELET COUNT 300 K/MM3 (134-434); RBC 4.74 M/mm3 (3.60-5.2); RDW 14.8 % (11.6-15.6); WHITE BLOOD COUNT 8.5 K/mm3 (4.0-10.0)
[2020-09-18] MEDS: INSULIN SLIDING SCALE (NOVOLOG) 1 VIAL SQ SCH ×2 (07:43→11:26)
[2020-09-18 07:44] LABS: ALBUMIN 3.6 g/dl (3.4-5.0); BLOOD UREA NITROGEN 15.5 mg/dL (7-18); CALCIUM 9.4 mg/dL (8.5-10.1)
[2020-09-18 07:45] LABS: MAGNESIUM 2.3 mg/dL (1.8-2.4)
[2020-09-18 07:48] LABS: PHOSPHOROUS 3.3 mg/dL (2.5-4.9)
[2020-09-18 07:49] LABS: TOT PROT 7.4 g/dl (6.4-8.2)
[2020-09-18 07:51] LABS: CREATININE 0.8 mg/dL (0.55-1.3)
[2020-09-18 07:52] LABS: BILIRUBIN,TOTAL 0.3 mg/dL (0.2-1)
[2020-09-18] MEDS ORDERED: PT OWN MED DRAWER 7, Y5N ONE (07:55)
[2020-09-18] MEDS: FAMOTIDINE 20 MG/50 ML IVPB 20 MG/50 ML MG IVPB SCH (09:08)
[2020-09-18 09:16] VITALS: BP 105/87; PULSE 99
[2020-09-18] MEDS: levETIRAcetam 500 MG/5 ML INJECTION VIAL IVPB SCH (09:58)
[2020-09-18] MEDS ORDERED: TIOTROPIUM BROMIDE 2.5 MCG (SPIRIVA) RESPIMAT INHALER IH SCH (10:00)
[2020-09-18] MEDS: BUDESONIDE/FORMETEROL FUMARATE 80/4.5 mcg INHALER IH SCH (10:01)
[2020-09-18] MEDS: ALBUTEROL SO4 HFA INHALER IH PRN (10:02)
[2020-09-18] MEDS: Lacosamide 200 MG/20 ML VIAL IVPB SCH (10:43)
== END 2020-09-18 15:33 | disposition home or self-care (01) | DRG 100 ==
LOC: JER 18:47 → JERBED 22:15 → J4W 09-17 03:20
PROVIDERS: ADMIT Internal Medicine
DX: R56.9 Unspecified convulsions (principal); G93.6 Cerebral edema; R47.01 Aphasia; C79.31 Secondary malignant neoplasm of brain; C34.90 Malignant neoplasm of unspecified part of unspecified bronchus or lung; J44.9 Chronic obstructive pulmonary disease, unspecified; E78.5 Hyperlipidemia, unspecified; E66.9 Obesity, unspecified; Z68.35 Body mass index [BMI] 35.0-35.9, adult; K57.90 Diverticulosis of intestine, part unspecified, without perforation or abscess without bleeding; K76.0 Fatty (change of) liver, not elsewhere classified; R41.3 Other amnesia; R73.9 Hyperglycemia, unspecified; T66.XXXA Radiation sickness, unspecified, initial encounter; Z88.0 Allergy status to penicillin
CPT/HCPCS: 36415; 70450-TC; 70496-TC; 80053; 80061; 81003; 82550; 82962; 83036; 83721; 83735; 84100; 84146; 84436; 84443; 84479; 84484; 85025; 85027; 85610; 85730; 86850; 86900; 86901; 93005; 93010; 97116-GP; 97161-GP; 99285-25; C9803; Q9967; U0003; U0005

== ENCOUNTER 2020-11-19 23:50 | Emergency (ER) | payer OTHER, BC ==
[2020-11-20] VITALS: TEMP 97.5; BMI 35.2
[2020-11-20] MEDS ORDERED: KETOROLAC TROMETHAMINE 15 MG/ML VIAL IVPUSH ONE (00:11)
[2020-11-20] MEDS ORDERED: MORPHINE SULFATE 2 MG/ML VIAL IVPUSH ONE (00:13)
[2020-11-20] MEDS ORDERED: ONDANSETRON 4 MG/2 ML VIAL IVPUSH ONE (00:14)
[2020-11-20] MEDS ORDERED: morphine SULFATE 4 MG/ML VIAL ONE (00:16)
[2020-11-20] MEDS ORDERED: ONDANSETRON 4 MG/2 ML VIAL ONE ×2 (00:17)
[2020-11-20] MEDS ORDERED: KETOROLAC TROMETHAMINE 15 MG/ML VIAL ONE (00:17)
[2020-11-20 00:58] LABS: BASO % 0.3 % (0-2.0); EOS % 1.9 % (0-4.5); HEMATOCRIT 44.8 % (32.4-45.2); LYMPH % 21.2 % (8-40); MCH 29.2 pg (25.7-33.7); MCHC 33.5 g/dl (32.0-36.0); MEAN CELL VOLUME 87.1 fl (80-96); MEAN PLT VOLUME 7.4 fl (7.5-11.1); MONO % 6.3 % (3.8-10.2); NEUT % 70.3 % (42.8-82.8); PLATELET COUNT 322 10^3/uL (134-434); RBC 5.15 M/mm3 (3.60-5.2); RDW 14.2 % (11.6-15.6); WHITE BLOOD COUNT 11.7 K/mm3 (4.0-10.0)
[2020-11-20 01:19] LABS: ALBUMIN 3.9 g/dl (3.4-5.0)
[2020-11-20 01:24] LABS: BILIRUBIN,TOTAL 0.3 mg/dL (0.2-1)
[2020-11-20 01:25] LABS: CALCIUM 9.5 mg/dL (8.5-10.1); CREATININE 0.9 mg/dL (0.55-1.3); TOT PROT 7.6 g/dl (6.4-8.2)
[2020-11-20] MEDS ORDERED: METOCLOPRAMIDE HCL INJECTION 10 MG/2 ML VIAL IVPUSH ONE (02:54)
[2020-11-20] MEDS ORDERED: LACTATED RINGERS SOLUTION 1000 ML INFUS.BAG IV ONE (03:13)
[2020-11-20] MEDS ORDERED: METOCLOPRAMIDE HCL INJECTION 10 MG/2 ML VIAL ONE (03:17)
[2020-11-20 06:10] VITALS: BP 142/74; PULSE 89
[2020-11-20 08:32] LABS: EPI CELLS >36 /uL (0-25.1); HYALINE CASTS 5 /uL (0-3.1); PH,URINE 5.5 (5.0-8.0); URINE APPEARANCE CLOUDY; URINE BACTERIA 1089 /uL (0-1359); URINE BILIRUBIN NEGATIVE (NEGATIVE); URINE COLOR YELLOW; URINE GLUCOSE (UA) NEGATIVE (NEGATIVE); URINE KETONE NEGATIVE (NEGATIVE); URINE LEUK ESTERASE 3+ (NEGATIVE); URINE NITRITE NEGATIVE (NEGATIVE); URINE PROTEIN 1+ (NEGATIVE); URINE RBC 32 /uL (0-23.9); URINE WBC 219 /uL (0-25.8)
== END 2020-11-20 06:10 | disposition home or self-care (01) ==
LOC: JER 23:50
PROC: 3E0333Z Introduction of Anti-inflammatory into Peripheral Vein, Percutaneous Approach (ICD-10-PCS; principal; 2020-11-20)
PROC: 3E033GC Introduction of Other Therapeutic Substance into Peripheral Vein, Percutaneous Approach (ICD-10-PCS; 2020-11-20)
PROC: 3E033GC Introduction of Other Therapeutic Substance into Peripheral Vein, Percutaneous Approach (ICD-10-PCS; 2020-11-20)
DX: R10.84 Generalized abdominal pain (principal)
CPT/HCPCS: 36415; 80053; 81003; 83605; 83690; 85025; 93005; 93010; 99285-25

== ENCOUNTER 2022-03-02 10:23 | Emergency (ER) | payer OTHER, BC ==
[2022-03-02 11:07] VITALS: PULSE 75; RESP 18; BMI 37.8
[2022-03-02] MEDS ORDERED: ACETAMINOPHEN 1000 MG/100 ML BAG IVPB ONE (11:46)
[2022-03-02] MEDS ORDERED: METOCLOPRAMIDE HCL INJECTION 10 MG/2 ML VIAL IVPB ONE (11:46)
[2022-03-02] MEDS ORDERED: levETIRAcetam 500 MG/5 ML INJECTION VIAL IVPB ONE ×2 (11:46→12:22)
[2022-03-02] MEDS ORDERED: ACETAMINOPHEN INJECTION 100 ML IVPB ONE (12:23)
[2022-03-02] MEDS ORDERED: METOCLOPRAMIDE HCL INJECTION 10 MG/2 ML VIAL ONE (12:23)
[2022-03-02 12:28] LABS: BASO % 0.3 % (0-2.0); EOS % 0.8 % (0-4.5); HEMATOCRIT 41.1 % (32.4-45.2); LYMPH % 16.5 % (8-40); MCH 29.3 pg (25.7-33.7); MEAN CELL VOLUME 86.1 fl (80-96); MEAN PLT VOLUME 6.7 fl (7.5-11.1); MONO % 6.4 % (3.8-10.2); PLATELET COUNT 327 10^3/uL (134-434); RBC 4.77 M/mm3 (3.60-5.2); RDW 14.3 % (11.6-15.6); WHITE BLOOD COUNT 7.6 K/mm3 (4.0-10.0)
[2022-03-02 12:45] LABS: ALBUMIN 3.6 g/dl (3.4-5.0); CALCIUM 9.4 mg/dL (8.5-10.1)
[2022-03-02 12:48] LABS: CREATININE 0.7 mg/dL (0.55-1.3)
[2022-03-02 12:50] LABS: BILIRUBIN,TOTAL 0.3 mg/dL (0.2-1); TOT PROT 7.5 g/dl (6.4-8.2)
[2022-03-02] MEDS ORDERED: DEXAMETHASONE SOD PHOSPHATE 10 MG/1 ML VIAL IVPUSH ONE (15:05)
[2022-03-02] MEDS ORDERED: DEXAMETHASONE SOD PHOSPHATE 10 MG/1 ML VIAL ONE (15:30)
[2022-03-02] MEDS ORDERED: oxyCODONE HCL 5 MG TABLET PO ONE (16:28)
[2022-03-02] MEDS ORDERED: oxyCODONE HCL 5 MG TABLET ONE (16:30)
[2022-03-02 17:27] VITALS: BP 125/81; TEMP 98.2
== END 2022-03-02 17:42 | disposition short-term general hospital (02) ==
LOC: JER 10:23
PROC: 3E0333Z Introduction of Anti-inflammatory into Peripheral Vein, Percutaneous Approach (ICD-10-PCS; principal; 2022-03-02)
PROC: 3E0333Z Introduction of Anti-inflammatory into Peripheral Vein, Percutaneous Approach (ICD-10-PCS; 2022-03-02)
PROC: 3E033GC Introduction of Other Therapeutic Substance into Peripheral Vein, Percutaneous Approach (ICD-10-PCS; 2022-03-02)
PROC: 3E033GC Introduction of Other Therapeutic Substance into Peripheral Vein, Percutaneous Approach (ICD-10-PCS; 2022-03-02)
DX: R51.9 Headache, unspecified (principal)
CPT/HCPCS: 0241U-QW; 36415; 70450-TC; 80053; 85025; 93005; 93010; 99285-25; J1100